=== PATIENT | male | born 1940 | race Caucasian/White ===

== ENCOUNTER → 2018-06-26 12:17 | Outpatient (CLI) | payer MEDICARE, SELFPAY ==
[2018-06-18 10:09] VITALS: BMI 36.2
--- NOTE | 2018-06-26 12:20 | STEWCON_ITS ---
Reason For Study: HTN, Diastolic Dysfunction Stress Results Protocol: Dobutamine Stress Echo Maximum Predicted HR: 143 bpm Target HR: 122 bpm % Maximum Predicted HR: 67 % Heart Stage Duration Rate BP Comment (mm:ss) (bpm) Baseline 64 133/73No Chest Pain; 2.5 ML Diluted Definity Given DSE 10 MCG 3:00 51 135/81No Chest Pain DSE 20 MCG 3:00 56 205/97No Chest Pain No Chest Pain; Atropine not given d/t stroke symptoms; At the end of DSE 30 the third stage, patient noted to have slurred speech and right MCG 4:58 96 194/86facial droop. Unable to lift left arm. Test aborted. Stroke team activated . Stress Duration: 10:58 mm:ss Maximum Stress HR: 96 bpm Baseline Echocardiogram Findings The estimated ejection fraction is 65 %. Stress Echo Wall motion Data Resting WM Intermediate WM Stress WM Resting Wall Motion Wall Motion Stress No regional wall motion No regional wall motion abnormalities noted. abnormalities noted. EKG Data The baseline ECG displays normal sinus rhythm. The patient was titrated from 10 mcg to a maximum of 20 mcg of dobutamine during the stress. This was 69% of maximum predicted heart rate. During dobutamine infusion, there were no ST or T wave changes noted to suggest ischemia. No clinical angina was noted. Interpretation Summary The study was technically difficult. Contrast injection was performed. The estimated ejection fraction is 65 %. The patient was titrated from 10 mcg to a maximum of 20 mcg of dobutamine during the stress. Normal, submaximal dobutamine echocardiogram. Negative for ischemia by EKG and echocardiographic criteria. No anginal symptoms noted. Rare PVCs and ventricular couplets noted. Hypertensive blood pressure response to dobutamine. Test aborted as the patient developed slurred speech and right- sided facial droop and right arm paralysis during the third stage of the dobutamine stress echo. Stroke team was called and the patient was brought emergently to the emergency room for further evaluation. Patient's family notified by telephone. Decreased sensitivity due to poor echo windows requiring Definity agent as well as inability to obtain target heart rate. Final LVEF during the test was 75%. Ordering Physician: Osmani Grijalva Referring Physician: Osmani Grijalva Performed By: Kathie High, ELVIN, RVT
--- NOTE | 2018-06-26 13:14 | CT_ITS ---
STUDY: CTA OF THE BRAIN REASON FOR EXAM: Male, 78 years old. Acute hematoma in the left basal ganglia. RADIATION DOSAGE (If Supplied By Facility): CTDIvol = ( 18.76 ) mGy, DLP = ( 657.51 ) mGycm TECHNIQUE: CT angiography was performed with a multi-detector CT scanner. Data acquisition was obtained from the skull base through the vertex following intravenous administration of 100 ml of Isovue-300. MIP images were reconstructed from the axial data set. Post-processing of the angiographic images was performed, with multiplanar reformation and 3D reconstruction. Individualized dose optimization techniques were used for this CT. COMPARISON: None. FINDINGS: Normal bilateral petrous carotid arteries. There is calcified plaque formation of the right cavernous carotid artery, without a cross-sectional luminal stenosis. There is calcified plaque formation of the left cavernous carotid artery, without a cross-sectional luminal stenosis. Normal right A1 segments of the anterior cerebral artery. Normal left A1 segments of the anterior cerebral artery. Normal intact anterior communicating artery (ACOM). Normal bilateral A2 segments of the anterior cerebral arteries. Normal right M1 and M2 segments of the middle cerebral arteries, with a normal M1 bifurcation. Normal left M1 and M2 segments of the middle cerebral arteries, with a normal M1 bifurcation. Normal right posterior communicating artery (PCOM). Normal left posterior communicating artery (PCOM). Normal bilateral vertebral arteries. Normal basilar artery with a normal basilar bifurcation. The visualized bilateral superior cerebellar (SCA) arteries are normal. Normal bilateral P1, P2 and visualized P3 segments of the posterior cerebral arteries. There is no demonstrated aneurysm of the [place] of [place]. Once again, there is evidence acute hematoma in the insular cortex on the left frontal temporal parietal lobe abutting the left thalamus. IMPRESSION: Normal [place] of [place] without a demonstrated aneurysm or hemodynamically significant stenosis. N.B. : The above information has been verbally conveyed by Christofer Gill MD to Dr Baker on 06/26/2018 13:57:00 (ET). Electronically Signed: Christofer Gill MD at 13:55 EST Tel [phone], Service support , STUDY: CTA NECK WITH CONTRAST REASON FOR EXAM: Male, 78 years old. Left intracranial hematoma. RADIATION DOSAGE (If Supplied By Facility): CTDIvol = ( 18.76 ) mGy, DLP = ( 657.51 ) mGycm TECHNIQUE: CT angiography with multi-detector data acquisition was performed from the aortic arch to the skull base following intravenous administration of 100 ml of Isovue 300 contrast. MIP images were reconstructed from the axial data set. Post-processing of the angiographic images was performed, with multiplanar reformation and 3D reconstruction. Individualized dose optimization techniques were used for this CT. COMPARISON: None. FINDINGS: AORTIC ARCH: There is atherosclerotic calcific plaque formation of the aortic arch and great vessels arising from the aortic arch, without a hemodynamically significant stenosis. There is a normal origin of the brachiocephalic, left common carotid, and left subclavian arteries. RIGHT CAROTID ARTERIES: Normal right common carotid artery (CCA). Normal right common carotid bulb. There is mild atherosclerotic plaque formation of the origin of the right internal carotid artery with less than 50% cross sectional diameter stenosis. Normal visualized cervical portion of the right internal carotid artery. Normal origin of the right external carotid artery (ECA). LEFT CAROTID ARTERIES: Normal left common carotid artery (CCA). Normal left common carotid bulb. There is mild atherosclerotic plaque formation of the origin of the left internal carotid artery with less than 50% cross sectional diameter stenosis. Normal visualized cervical portion of the left internal carotid artery. Normal origin of the left external carotid artery (ECA). VERTEBRAL ARTERIES: Normal bilateral vertebral arteries. CT/CTA Neck W/WO Contrast IMPRESSION: Mild degree of atherosclerotic calcification of the carotid bifurcations bilaterally. N.B. : The above information has been verbally conveyed by Christofer Gill MD to Dr Baker on 06/26/2018 13:57:00 (ET). Electronically Signed: Christofer Gill MD at 13:58 EST Tel [phone], Service support ,
--- NOTE | 2018-06-26 13:14 | CT_ITS ---
STUDY: CTA OF THE BRAIN REASON FOR EXAM: Male, 78 years old. Acute hematoma in the left basal ganglia. RADIATION DOSAGE (If Supplied By Facility): CTDIvol = ( 18.76 ) mGy, DLP = ( 657.51 ) mGycm TECHNIQUE: CT angiography was performed with a multi-detector CT scanner. Data acquisition was obtained from the skull base through the vertex following intravenous administration of 100 ml of Isovue-300. MIP images were reconstructed from the axial data set. Post-processing of the angiographic images was performed, with multiplanar reformation and 3D reconstruction. Individualized dose optimization techniques were used for this CT. COMPARISON: None. FINDINGS: Normal bilateral petrous carotid arteries. There is calcified plaque formation of the right cavernous carotid artery, without a cross-sectional luminal stenosis. There is calcified plaque formation of the left cavernous carotid artery, without a cross-sectional luminal stenosis. Normal right A1 segments of the anterior cerebral artery. Normal left A1 segments of the anterior cerebral artery. Normal intact anterior communicating artery (ACOM). Normal bilateral A2 segments of the anterior cerebral arteries. Normal right M1 and M2 segments of the middle cerebral arteries, with a normal M1 bifurcation. Normal left M1 and M2 segments of the middle cerebral arteries, with a normal M1 bifurcation. Normal right posterior communicating artery (PCOM). Normal left posterior communicating artery (PCOM). Normal bilateral vertebral arteries. Normal basilar artery with a normal basilar bifurcation. The visualized bilateral superior cerebellar (SCA) arteries are normal. Normal bilateral P1, P2 and visualized P3 segments of the posterior cerebral arteries. There is no demonstrated aneurysm of the [place] of [place]. Once again, there is evidence acute hematoma in the insular cortex on the left frontal temporal parietal lobe abutting the left thalamus. IMPRESSION: Normal [place] of [place] without a demonstrated aneurysm or hemodynamically significant stenosis. N.B. : The above information has been verbally conveyed by Christofer Gill MD to Dr Baker on 06/26/2018 13:57:00 (ET). Electronically Signed: Christofer Gill MD at 13:55 EST Tel [phone], Service support , STUDY: CTA NECK WITH CONTRAST REASON FOR EXAM: Male, 78 years old. Left intracranial hematoma. RADIATION DOSAGE (If Supplied By Facility): CTDIvol = ( 18.76 ) mGy, DLP = ( 657.51 ) mGycm TECHNIQUE: CT angiography with multi-detector data acquisition was performed from the aortic arch to the skull base following intravenous administration of 100 ml of Isovue 300 contrast. MIP images were reconstructed from the axial data set. Post-processing of the angiographic images was performed, with multiplanar reformation and 3D reconstruction. Individualized dose optimization techniques were used for this CT. COMPARISON: None. FINDINGS: AORTIC ARCH: There is atherosclerotic calcific plaque formation of the aortic arch and great vessels arising from the aortic arch, without a hemodynamically significant stenosis. There is a normal origin of the brachiocephalic, left common carotid, and left subclavian arteries. RIGHT CAROTID ARTERIES: Normal right common carotid artery (CCA). Normal right common carotid bulb. There is mild atherosclerotic plaque formation of the origin of the right internal carotid artery with less than 50% cross sectional diameter stenosis. Normal visualized cervical portion of the right internal carotid artery. Normal origin of the right external carotid artery (ECA). LEFT CAROTID ARTERIES: Normal left common carotid artery (CCA). Normal left common carotid bulb. There is mild atherosclerotic plaque formation of the origin of the left internal carotid artery with less than 50% cross sectional diameter stenosis. Normal visualized cervical portion of the left internal carotid artery. Normal origin of the left external carotid artery (ECA). VERTEBRAL ARTERIES: Normal bilateral vertebral arteries. CT/CTA Head W/WO Contrast IMPRESSION: Mild degree of atherosclerotic calcification of the carotid bifurcations bilaterally. N.B. : The above information has been verbally conveyed by Christofer Gill MD to Dr Baker on 06/26/2018 13:57:00 (ET). Electronically Signed: Christofer Gill MD at 13:58 EST Tel [phone], Service support ,
--- NOTE | 2018-06-26 13:14 | CT_ITS ---
STUDY: CT BRAIN WITHOUT CONTRAST REASON FOR EXAM: Male, 78 years old. History of CVA. RADIATION DOSAGE (If Supplied By Facility): CTDIvol = ( 60.81 ) mGy, DLP = ( 1059.71 ) mGycm TECHNIQUE: Transaxial CT imaging of the brain was performed without administration of intravenous contrast material. Individualized dose optimization techniques were used for this CT. COMPARISON: Comparison is made with prior study dated January 20, 2015. FINDINGS: Normal soft tissue structures. Normal calvarium. There is mild cerebral atrophy with widening of the extra-axial spaces and ventricular dilatation. There are areas of decreased attenuation within the white matter tracts of the supratentorial brain, consistent with microvascular disease changes. There now is evidence of a 4.1 cm x 2.4 cm acute hematoma in the deep left frontal temporal parietal lobe in the region of the insular cortex of the left temporal lobe. This abuts the left thalamus. Surrounding mass effect and edema. Normal brainstem. Normal cerebellum. Normal visualized paranasal sinuses. CT/Brain/Head without Contrast IMPRESSION: Acute intracranial hematoma in the insular cortex of the left temporoparietal frontal lobes with surrounding mass effect and edema. N.B. : The above information has been verbally conveyed by Christofer Gill MD to Dr Olivia MD, on 06/26/2018 13:36:13 (ET). Electronically Signed: Christofer Gill MD at 13:37 EST Tel [phone], Service support ,
== END ==
PROVIDERS: Family Provider Family Medicine; PCP Family Medicine; Referring Provider Internal Medicine Cardiovascular Disease; Visit Provider Internal Medicine Cardiovascular Disease
DX: I12.9 Hypertensive chronic kidney disease with stage 1 through stage 4 chronic kidney disease, or unspecified chronic kidney disease (principal); N18.9 Chronic kidney disease, unspecified; I51.89 Other ill-defined heart diseases; E78.5 Hyperlipidemia, unspecified; E11.22 Type 2 diabetes mellitus with diabetic chronic kidney disease; G47.33 Obstructive sleep apnea (adult) (pediatric)
CPT/HCPCS: 70450; 70496; 70498; 93017; 93350; J7040; Q9957; Q9967; A4216; C8928

== ENCOUNTER 2018-06-26 13:23 | Emergency (ER) | payer MEDICARE, SELFPAY ==
[2018-06-18 10:09] VITALS: BMI 36.2
[2018-06-26] VITALS (7 sets, daily range): BP systolic 127–176; BP diastolic 65–88; PULSE 72–90; RESP 16–20; TEMP 36.2; O2SAT 90–97; BMI 38.3
[2018-06-26] MEDS: 0.9% Normal Saline 1,000 ML 100 ML IV (13:25)
--- NOTE | 2018-06-26 13:28 | EKG12_ITS ---
Test Reason : STROKETEAM Blood Pressure : / mmHG Vent. Rate : 074 BPM Atrial Rate : 074 BPM P-R Int : 144 ms QRS Dur : 140 ms QT Int : 434 ms P-R-T Axes : 079 075 026 degrees QTc Int : 481 ms Normal sinus rhythm Right bundle branch block Abnormal ECG Confirmed by WILL CORTEZ, ALDO ([id number]), publication editor MIRNA DE SOUZA ([id number]) on 06/29/2018 2:25:22 PM Referred By: Osmani Grijalva Confirmed By:ALDO SOLIS MD
--- NOTE | 2018-06-26 13:28 | RAD_ITS ---
STUDY: X-RAY CHEST REASON FOR EXAM: Male, 78 years old. Intracranial hemorrhage. TECHNIQUE: Single AP portable view of the chest. COMPARISON: None. FINDINGS: EKG electrodes are seen. Limited inspiratory effort. Mild degree of impaired aeration at the lung bases. There is no demonstrated pleural abnormality. There is mild cardiac enlargement. Normal mediastinum and familia. Normal visualized pulmonary arteries. There is atherosclerotic calcification of the aortic arch with tortuosity. There are diffuse degenerative changes of the visualized thoracic spine. There is degenerative osteoarthritis of the bilateral shoulders. There is no demonstrated abnormality of the visualized soft tissue structures of the upper abdomen. RAD/Chest 1 View IMPRESSION: Mild degree of bibasilar atelectasis is most likely secondary to limited inspiratory effort. Electronically Signed: Christofer Gill MD at 14:05 EST Tel [phone], Service support ,
[2018-06-26 13:35] LABS: Bedside Glucose 125 mg/dL (70-110)
[2018-06-26 13:43] LABS: Absolute Lymphocyte Count 3.57 X10^3/ul (0.83-4.51); Absolute Neutrophil Count 7.5 X10^3/uL (2.0-7.7); Basophil# 0.04 X10^3/uL; Basophil% 0.3 % (0-1); Eosinophil# 0.23 X10^3/uL; Eosinophils% 1.9 % (0-5); Hemoglobin 15.4 g/dl (13.0-16.5); Lymphocyte # 3.57 X10^3/ul (4.0); Lymphocyte % 29.5 % (19-41); Mean Corp Hgb Conc 33.5 g/gl (32-36); Mean Corpuscular Volume 89.5 fL (80-94); Mean Platelet Vol. 10.6 fl (6.2-12.0); Monocyte# 0.78 X10^3/uL; Monocyte% 6.4 % (0-10); Neutrophil # 7.45 X10^3/uL (2.7-7.7); Neutrophil % 61.5 % (47-70); Platelet Count 215 K/mm3 (150-450); RBC Distribution Width CV 13.7 % (11.6-14.6); RBC Distribution Width SD 44.2 fl (35.1-43.9); Red Blood Count 5.14 M/mm3 (4.6-6.2); White Blood Count 12.1 K/mm3 (4.4-11.0)
[2018-06-26 13:44] LABS: POSITIVE COUNT NO; POSITIVE DIFFERENTIAL NO; POSITIVE MORPHOLOGY NO
[2018-06-26] MEDS: levETIRAcetam IV 1,000 MG/100 ML BAG 400 MG IV (13:57)
[2018-06-26] MEDS: Ondansetron 4 MG/2 ML Vial IV (13:57)
--- NOTE | 2018-06-26 14:01 | CHAPLAIN ---
Type of Pastoral Visit ___ Initial Visit ___ Follow-up Visit ___ On-call Visit ___ General Patient Visit ___ Spiritual Assessment ___ Family Conference ___ Bereavement _x__ Rapid Response ___ Code Blue ___ Other (describe below) Pastoral Care Referral From ___ Patient ___ Family ___ Nurse ___ Physician ___ Rehab Nurse ___ Optical Mechanic Apprentice _x__ Other (describe below) Sacrament/Intervention ___ Active listening ___ Anointing ___ Methodist ___ Bereavement ___ Communion ___ [place] exploration ___ ___ Life review ___ Prayer ___ Reconciliation ___ Sacrament of Sick _x__ Supportive presence ___ Wedding ___ Other (describe below) Pastoral Comments waited 20 minutes on family members to show up but they did not immediately come; went to Echocardiogram area to check on staff members who witnessed the stroke; offered support to staff
[2018-06-26 14:04] LABS: Anion Gap 9 (5-15); BUN 24 mg/dL (7-18); BUN/Creat Ratio 20.2 RATIO (10-20); Calcium,Total 8.5 mg/dL (8.5-10.1); Chloride 106 mmol/L (98-107); Creatinine, Serum 1.19 mg/dL (0.70-1.30); EST Glomerular Filtration Rate 63 mL/min (>60); Est Glom Filt Rate - Afr Amer 76 mL/min (>60); Estimated Creatinine Clearance 51.99 ml/min; Glucose 116 mg/dL (74-106); Potassium 3.8 mmol/L (3.5-5.1); Sodium Level 140 mmol/L (136-145)
[2018-06-26 14:08] LABS: Partial Thromboplast Time 30.3 Seconds (24.1-36.2); Prothrombin Time (Protime)PT. 13.3 SECONDS (11.7-14.9)
--- NOTE | 2018-06-26 14:14 | ED.DCSUM_ITS ---
- ER Visit Summary Date of Service: 06/26/18 Chief Complaint: [Mental status change and facial droop] History of Present Illness: The patient is a 78 M [presents to the emergency department from CT scanner. Patient was at the hospital for an outpatient stress echo. 6 minutes into the testing patient developed slurred speech and a facial droop. Stroke team was called and patient was taken directly to the CT scanner and was accompanied back to the emergency department by hospitalist and neurologist that was in house. Patient complains of a headache. Patient did have some dry heaves prior to arrival in the emergency department. Patient is difficult to understand as he has garbled speech but does not his head yes and no and does state that he has a headache. Patient is known to have a history of diabetes, hypertension, high cholesterol, and chronic kidney disease.] Physical Examination: [HEENT-PERRLA, EOMI. Cranial nerves II through XII grossly intact. TMs clear. Mucous membranes moist. No adenopathy. Patient has a right-sided facial droop Cardiovascular-regular rate and rhythm without murmur or ectopy Lungs-clear to auscultation, chest wall stable without crepitus or subcu emphysema Abdomen-normoactive bowel sounds, soft, nontender, no rebound or rigidity, no peritoneal signs. Neuro exam-NIH stroke scale is 22. Patient has flaccid right upper and lower extremities and has extinction of his right side. Extremities-intact ?4, normal range of motion, normal pulses, atraumatic] Test Results: [T scan of the brain without contrast showed a intracranial hemorrhage left temporoparietal insular cortex measuring 4.1 x 2.4 cm. CBC with differential showed a white count of 12.1, hemoglobin 15, hematocrit 46, placed 215. Chemistries unremarkable. Troponin is less than 0.015. EKG obtained showed a sinus rhythm with ventricular rate of 74 bpm with a right bundle branch block.] Emergency Department Course and Treatment: [Patient was medicated with labetalol 20 mg IV as well as Zofran 4 mg IV and Keppra 1 g IV.] Treatment Plan: [Patient case was discussed with [facility] who accepted transfer of patient to their facility. At this point patient is maintaining his airway and is a alert therefore will hold off on intubation.] Disposition: [Transfer to [facility]] Impression: [Left-sided intracranial hemorrhage] This note was generated with [employer]OTE[employer] dictation software. It may contain incorrect words, spelling, and punctuation that were not noted in review of the chart prior to signing ED Disposition - Plan for ED Patient: Chief Complaint: Neuro S/Sx Referrals: Edilson Jaramillo MD [Primary Care Provider] -
--- NOTE | 2018-06-26 14:17 | CON.PCM_ITS ---
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 Patient was getting outpatient dobutamine stress test, when around 1:05 PM patient started having speech disturbances with right facial droop and right sided weakness. NIHSS on my assessment was 24 at that time and per nurse patient had driven himself to the test. Per nurse at the echo lab his SBP was about 210 and was around [address] scan[address] head done stat showed left temporo-parietal hematoma with mild mass effect. CTA head/neck on my review did not show any aneurysm. At present patient continues to be somnolent, with right gaze preference, right facial droop, right sided hemiplegia, and neglect. 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, leg crushed by rock Hyperlipidemia (Chronic) Osteoarthritis (Chronic) Restless leg syndrome (Chronic) Benign prostatic hyperplasia (Chronic) Hypertension (Chronic) Obstructive sleep apnea (Chronic) Type 2 diabetes mellitus (Chronic) Medical History: Medical History (Last Updated 06/25/18 @ 13:27 by Elina Dallas) Chronic renal insufficiency (Chronic) N18.9 Hyperlipidemia (Chronic) E78.5 Benign prostatic hyperplasia (Chronic) N40.0 Hypertension (Chronic) I10 Obstructive sleep apnea (Chronic) G47.33 Type 2 diabetes mellitus (Chronic) E11.9 Allergies liraglutide [From Victoza] Adverse Reaction (Severe, Verified 06/26/18 13:29) Diarrhea Home Medications: Ambulatory Orders Medication Instructions Recorded Dorzolamide HCL/Timolol [Cosopt 1 drp EACH EYE BID 09/11/14 Opth Drops] Escitalopram Oxalate [Lexapro] 10 mg PO DAILY 09/11/14 Furosemide [Lasix] 40 mg PO DAILY 09/11/14 Latanoprost 0.005% [Xalatan 1 drp EACH EYE QHS 09/11/14 Opthalmic] Rosuvastatin Calcium [Crestor] 10 mg PO DAILY 09/11/14 Insulin Detemir [Levemir FlexPen] 66 units SC QHS 06/19/16 gabapentin 400 mg capsule 400 mg PO DAILY 11/11/17 metformin 1,000 mg tablet 1,000 mg PO QDAY tab 11/13/17 carvedilol 3.125 mg tablet 3.125 mg PO BID #180 tab 03/06/18 Surgical History: Surgical History (Last Reviewed 06/18/18 @ 09:27 by Jeimy Parker) History of total right knee replacement (Chronic) Z96.651 History of left lower extremity amputation (Chronic) Z89.612 age 8 after trauma, leg crushed by rock Surgical History: total knee arthroplasty, - - Past history of otsuw-pjt-ibao amputation on the left secondary to trauma when the patient was 14 years old Psychiatric History: No pertinent psych hx Smoking Status: Former smoker - *Family History Maternal Family History: Family History (Last Reviewed 06/18/18 @ 09:27 by Jeimy Parker) Father Negative for ASCVD Mother Negative for ASCVD History Items: Cancer Paternal Family History: Family History (Last Reviewed 06/18/18 @ 09:27 by Jeimy Parker) Father Negative for ASCVD Mother Negative for ASCVD History Items: Cancer Sibling Family History: Family History (Last Reviewed 06/18/18 @ 09:27 by Jeimy Parker) Father Negative for ASCVD Mother Negative for ASCVD History Items: Heart Disease Review of Systems Constitutional: Reports: - - ROS could not be obtained as patient is altered Patient Problems: Active and Suspected Problems (Last Updated 06/25/18 @ 13:27 by Elina Dallas) ICH (intracerebral hemorrhage) (Acute) - Physical Exam General: - - drowsy, arousable HEENT: Normocephalic Neck: Supple Lungs: Normal air movement Cardiovascular: Normal S1, Normal S2 Abdomen: Bowel Sounds Present Extremities: No cyanosis Neurological: - - drowsy, arousable,does not follow VC, CN- pupils BERL, Right 7th UMN facial palsy, right homonymous hemianopia, power Right UE/LE 0/5, moves left UE, left LE AKA (old), right sided neglect, severe sensory loss, right extinction, severe aphasia, NIHSS 24 at present Psych/Mental Status: Normal Affect Vital Signs Temp Pulse Resp BP Pulse Ox 97.2 F L 86 18 137/67 H 96 06/26/18 13:30 06/26/18 13:47 06/26/18 13:47 06/26/18 13:47 06/26/18 13:47 Oxygen Flow Rate (L/min) 3 Oxygen Delivery Method Room Air Weight: 117.8 kg Body Mass Index (BMI) 38.3 Finger Stick Blood Glucose 125 Laboratory Tests Past 24 Hrs 06/26/18 06/26/18 06/26/18 13:30 13:30 13:30 WBC 12.1 H RBC 5.14 Hgb 15.4 Hct 46.0 MCV 89.5 MCH 30.0 MCHC 33.5 RDW 13.7 RDW Differential 44.2 H Plt Count 215 MPV 10.6 Immature Gran % (Auto) 0.400 Neut % (Auto) 61.5 Lymph % (Auto) 29.5 [place] % (Auto) 6.4 Eos % (Auto) 1.9 Baso % (Auto) 0.3 Absolute Neuts (auto) 7.5 Absolute Lymphs (auto) 3.57 Total Counted Not Reportable PT Cancelled INR Cancelled APTT Cancelled Sodium 140 Potassium 3.8 Chloride 106 Carbon Dioxide 25.0 Anion Gap 9 BUN 24 H Creatinine 1.19 Estim Creat Clear Calc 51.99 Est GFR (MDRD) Af Amer 76 Est GFR (MDRD) Non-Af 63 BUN/Creatinine Ratio 20.2 H Glucose 116 H Calcium 8.5 Troponin I < 0.015 06/26/18 13:55 WBC RBC Hgb Hct MCV MCH MCHC RDW RDW Differential Plt Count MPV Immature Gran % (Auto) Neut % (Auto) Lymph % (Auto) [place] % (Auto) Eos % (Auto) Baso % (Auto) Absolute Neuts (auto) Absolute Lymphs (auto) Total Counted PT Pending INR Pending APTT Pending Sodium Potassium Chloride Carbon Dioxide Anion Gap BUN Creatinine Estim Creat Clear Calc Est GFR (MDRD) Af Amer Est GFR (MDRD) Non-Af BUN/Creatinine Ratio Glucose Calcium Troponin I POC Glucose 06/26/18 13:28 POC Glucose 125 H Assessment/Plan All Active Problems (Last Updated 06/25/18 @ 13:27 by Elina Dallas) ICH (intracerebral hemorrhage) (Acute) Medical management (Acute) The patient is a 78 year old CM with PMH HTN, HLD, DM, CKD, diastolic dysfunction, RLS, BPH, 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 Patient was getting outpatient dobutamine stress test, when around 1:05 PM patient started having speech disturbances with right facial droop and right sided weakness. NIHSS on my assessment was 24 at that time and per nurse patient had driven himself to the test. Per nurse at the echo lab his SBP was about 210 and was around [address] scan[address] head done stat showed left temporo-parietal hematoma with mild mass effect. CTA head/neck on my review did not show any aneurysm. At present patient continues to be somnolent, with right gaze preference, right facial droop, right sided hemiplegia, and neglect. Per documentation he is not on any AC at baseline Impression Left temporo-parietal hematoma Plan -At present patient is maintaining his airway and is not intubated. -Frequent Neuro checks -Neurosurgery consults JOSEP -Patient to be transferred to tertiary center for further NICU care -At present no family available for further details -BP goal 150-160 mmHg -GI/DVT prophylaxis -Further medical management per primary team and ED. -Fall precautions -prognosis guarded -Please call with questions if any -Thank you for allowing us to participate in patient's care and management Code Visit Inpatient E&M: [id number] Init Hosp L3
== END 2018-06-26 15:27 | disposition short-term general hospital (02) ==
LOC: ED 13:49
PROVIDERS: Emergency Provider Emergency Medicine; Family Provider Family Medicine; PCP Family Medicine
DX: I62.9 Nontraumatic intracranial hemorrhage, unspecified (principal); R29.810 Facial weakness; N18.9 Chronic kidney disease, unspecified; I12.9 Hypertensive chronic kidney disease with stage 1 through stage 4 chronic kidney disease, or unspecified chronic kidney disease; E11.22 Type 2 diabetes mellitus with diabetic chronic kidney disease; E78.5 Hyperlipidemia, unspecified; N40.0 Benign prostatic hyperplasia without lower urinary tract symptoms; R47.89 Other speech disturbances; R29.724 NIHSS score 24; M19.90 Unspecified osteoarthritis, unspecified site; G25.81 Restless legs syndrome; G47.33 Obstructive sleep apnea (adult) (pediatric); I45.10 Unspecified right bundle-branch block; I70.0 Atherosclerosis of aorta; I65.23 Occlusion and stenosis of bilateral carotid arteries; H53.461 Homonymous bilateral field defects, right side; R47.01 Aphasia; R94.39 Abnormal result of other cardiovascular function study; R51 Headache; R41.82 Altered mental status, unspecified; Z79.899 Other long term (current) drug therapy; Z79.4 Long term (current) use of insulin; Z89.612 Acquired absence of left leg above knee; Z87.891 Personal history of nicotine dependence; Z86.79 Personal history of other diseases of the circulatory system; I51.89 Other ill-defined heart diseases
CPT/HCPCS: 70450; 70496; 70498; 71045; 80048; 82962; 84484; 85025; 85610; 85730; 93005; 93017; 93350; 96361; 96365; 96375; 99285; J7040; Q9957; Q9967; A4216; C8928; J2405

== ENCOUNTER → 2018-10-03 05:00 | Outpatient (REF) | payer MEDICARE, SELFPAY ==
[2018-06-26 13:24] VITALS: BMI 38.3
[2018-10-03 09:20] LABS: Anion Gap 6 (5-15); BUN 19 mg/dL (7-18); BUN/Creat Ratio 22.2 RATIO (10-20); Calcium,Total 8.7 mg/dL (8.5-10.1); Chloride 107 mmol/L (98-107); Creatinine, Serum 0.86 mg/dL (0.70-1.30); EST Glomerular Filtration Rate 92 mL/min (>60); Est Glom Filt Rate - Afr Amer 111 mL/min (>60); Glucose 275 mg/dL (74-106); Potassium 4.2 mmol/L (3.5-5.1); Sodium Level 139 mmol/L (136-145)
== END ==
PROVIDERS: Visit Provider Family Medicine
DX: Z93.1 Gastrostomy status (principal)
CPT/HCPCS: 36415; 80048

== ENCOUNTER 2018-11-13 12:02 | Emergency (ER) | payer MEDICARE, SELFPAY ==
[2018-06-26 13:24] VITALS: BMI 38.3
[2018-11-13 12:06] VITALS: BP 135/80; PULSE 67; RESP 19; TEMP 36.6; O2SAT 99; BMI 32.8
--- NOTE | 2018-11-13 12:29 | CT_ITS ---
STUDY: CT BRAIN WITHOUT CONTRAST REASON FOR EXAM: Male, 78 years old. Headache, history of previous bleed RADIATION DOSAGE (If Supplied By Facility): CTDIvol = ( 44.99 ) mGy, DLP = ( 863.60 ) mGycm TECHNIQUE: Transaxial CT imaging of the brain was performed without administration of intravenous contrast material. Individualized dose optimization techniques were used for this CT. COMPARISON: 06/26/2018 FINDINGS: Postsurgical changes noted in the left frontal/temporal lobe. No post surgical complications noted. Postsurgical changes noted in the left cerebral hemisphere with encephalomalacia at the site of previous surgery in the left insular cortex and subsequent ipsilateral dilatation of the left lateral ventricle. No acute hemorrhage midline shift or mass effect. CT/Brain/Head without Contrast IMPRESSION: Postsurgical changes noted in the left cerebral hemisphere. Atrophic, periventricular and deep white matter changes without acute intracranial hemorrhage, midline shift or mass effect. Electronically Signed: Mitesh Marshall MD at 13:07 EDT , Service support ,
--- NOTE | 2018-11-13 12:29 | CT_ITS ---
STUDY: CT CERVICAL SPINE WITHOUT CONTRAST REASON FOR EXAM: Male, 78 years old. Neck pain and headache after a fall RADIATION DOSAGE (If Supplied By Facility): CTDIvol = ( 26.76 ) mGy, DLP = ( 653.40 ) mGycm TECHNIQUE: High resolution transaxial imaging was performed without contrast material. Sagittal and coronal images were reconstructed. Individualized dose optimization techniques were used for this CT. COMPARISON: None FINDINGS: Normal craniovertebral junction. Normal anterior atlantoaxial articulation. Normal odontoid process. There is straightening of the normal cervical lordosis. There are sclerotic endplate changes noted throughout the cervical spine. There is anatomic alignment of the cervical spine. No demonstrated fracture. Intervertebral disc space narrowing noted throughout the cervical spine. No central canal stenosis, there is bilateral foraminal narrowing noted throughout the C-spine. Normal visualized soft tissue structures. No upper rib fracture or pneumothorax CT/Spine Cervical without Contras IMPRESSION: Multilevel degenerative changes, as described above. Electronically Signed: Mitesh Marshall MD at 13:10 EDT , Service support ,
--- NOTE | 2018-11-13 13:30 | ED.VISSUMM ---
- ER Visit Summary Date of Service: 11/13/18 Chief Complaint: [Fall] History of Present Illness: The patient is a 78 M [presents to the emergency department with complaint of a fall that occurred earlier today. Patient was in a lift chair and does believe he may have rolled out. Patient has had left hvene-lgi-xfqh amputation and has had prior stroke and has weakness on the right side of his body related to the stroke. Patient is on Eliquis currently and is being treated for a right leg DVT. He denies loss of consciousness. He denies chest pain or abdominal pain. Daughter wanted to have the patient evaluated. Patient also with history of diabetes.] Physical Examination: [HEENT-PERRLA, EOMI. Cranial nerves II through XII grossly intact. TMs clear. Mucous membranes moist. No adenopathy. Patient has superficial abrasions to the right forehead and cheek no bony depressions noted. Patient has mild diffuse C-spine tenderness on palpation. No bony step-offs. Cardiovascular-regular rate and rhythm without murmur or ectopy Lungs-clear to auscultation, chest wall stable without crepitus or subcu emphysema Abdomen-normoactive bowel sounds, soft, nontender, no rebound or rigidity, no peritoneal signs. Extremities-intact ?4, normal range of motion, normal pulses, atraumatic ] Test Results: [CT scan of the brain without contrast obtained and was unremarkable for bleed or skull fracture. Chronic changes noted. CT scan of the cervical spine obtained showed degenerative changes but no fractures.] Emergency Department Course and Treatment: [Patient had wounds cleansed and dressings applied.] Treatment Plan: [Follow with primary care physician in 3 to 5 days] Disposition: [Discharged to home in stable condition] Impression: [Mechanical fall Closed head injury] This note was generated with [employer] dictation software. It may contain incorrect words, spelling, and punctuation that were not noted in review of the chart prior to signing ED Disposition - Plan for ED Patient: Referrals: Pearl Stanton MD [Primary Care Provider] -
--- NOTE | 2018-11-13 13:34 | ED.DCSUM_ITS ---
- ER Visit Summary Date of Service: 11/13/18 Chief Complaint: [Fall] History of Present Illness: The patient is a 78 M [presents to the emergency department with complaint of a fall that occurred earlier today. Patient was in a lift chair and does believe he may have rolled out. Patient has had left wwfrb-hob-qbbl amputation and has had prior stroke and has weakness on the right side of his body related to the stroke. Patient is on Eliquis currently and is being treated for a right leg DVT. He denies loss of consciousness. He denies chest pain or abdominal pain. Daughter wanted to have the patient evaluated. Patient also with history of diabetes.] Physical Examination: [HEENT-PERRLA, EOMI. Cranial nerves II through XII grossly intact. TMs clear. Mucous membranes moist. No adenopathy. Patient has superficial abrasions to the right forehead and cheek no bony depressions noted. Patient has mild diffuse C-spine tenderness on palpation. No bony step- offs. Cardiovascular-regular rate and rhythm without murmur or ectopy Lungs-clear to auscultation, chest wall stable without crepitus or subcu emphysema Abdomen-normoactive bowel sounds, soft, nontender, no rebound or rigidity, no peritoneal signs. Extremities-intact ?4, normal range of motion, normal pulses, atraumatic ] Test Results: [CT scan of the brain without contrast obtained and was unremarkable for bleed or skull fracture. Chronic changes noted. CT scan of the cervical spine obtained showed degenerative changes but no fractures.] Emergency Department Course and Treatment: [Patient had wounds cleansed and dressings applied.] Treatment Plan: [Follow with primary care physician in 3 to 5 days] Disposition: [Discharged to home in stable condition] Impression: [Mechanical fall Closed head injury] This note was generated with [employer] dictation software. It may contain incorrect words, spelling, and punctuation that were not noted in review of the chart selvin or to signing ED Disposition - Plan for ED Patient: Referrals: Pearl Stanton MD [Primary Care Provider] -
--- NOTE | 2018-11-13 13:34 | ED.DEP ---
ED Disposition - Plan for ED Patient: Instructions: ED Mechanical Fall, ED Head Injury Closed Referrals: Pearl Stanton MD [Primary Care Provider] - 3-5 Days
[2018-11-13 14:10] VITALS: BP 151/78; PULSE 62; RESP 16; O2SAT 97
[2018-11-13 14:33] VITALS: BP 151/78; PULSE 65; RESP 16; O2SAT 97
== END 2018-11-13 14:34 | disposition home or self-care (01) ==
PROVIDERS: Emergency Provider Emergency Medicine; Family Provider Family Medicine; PCP Family Medicine
DX: S00.81XA Abrasion of other part of head, initial encounter (principal); W17.89XA Other fall from one level to another, initial encounter; Y93.9 Activity, unspecified; Y92.099 Unspecified place in other non-institutional residence as the place of occurrence of the external cause; I69.359 Hemiplegia and hemiparesis following cerebral infarction affecting unspecified side; E11.9 Type 2 diabetes mellitus without complications; Z89.612 Acquired absence of left leg above knee; Z79.01 Long term (current) use of anticoagulants; Z79.4 Long term (current) use of insulin; Z79.84 Long term (current) use of oral hypoglycemic drugs; Z79.899 Other long term (current) drug therapy
CPT/HCPCS: 70450; 72125; 99284

== ENCOUNTER → 2019-05-15 05:00 | Outpatient (REF) | payer MEDICARE, SELFPAY ==
[2018-12-25 11:03] VITALS: BMI 30.9
[2019-05-15 08:08] LABS: Hematocrit 46.4 % (40-54); Hemoglobin 14.7 g/dL (13.0-16.5); Mean Corp Hgb Conc 31.7 g/dL (32-36); Mean Corpuscular Hgb 29.1 pg (27.0-32.0); Mean Corpuscular Volume 91.9 fL (80-94); Mean Platelet Vol. 10.7 fl (6.2-12.0); Platelet Count 205 K/mm3 (150-450); RBC Distribution Width CV 14.2 % (11.6-14.6); RBC Distribution Width SD 47.8 fl (35.1-43.9); Red Blood Count 5.05 M/mm3 (4.6-6.2); White Blood Count 12.1 K/mm3 (4.4-11.0)
[2019-05-15 08:39] LABS: AST(SGOT) 26 U/L (15-37); Alanine Aminotransfer ALT/SGPT 10 U/L (16-61); Albumin, Serum 2.7 g/dL (3.2-5.0); Alkaline Phosphatase 109 U/L (45-117); Anion Gap 5 (5-15); BUN 18 mg/dL (7-18); BUN/Creat Ratio 18.8 RATIO (10-20); Bilirubin, Direct 0.12 mg/dL (0.00-0.30); Calcium,Total 8.5 mg/dL (8.5-10.1); Chloride 112 mmol/L (98-107); Cholesterol 103 mg/dL (200); Creatinine, Serum 0.96 mg/dL (0.70-1.30); EST Glomerular Filtration Rate 81 mL/min (>60); Est Glom Filt Rate - Afr Amer 98 mL/min (>60); Globulin 3.7 g/dL (2.2-4.2); Glucose 92 mg/dL (74-106); High Density Lipoprotein 32 mg/dL; Potassium 4.3 mmol/L (3.5-5.1); Protein, Total 6.4 g/dL (6.4-8.2); Sodium Level 143 mmol/L (136-145); Triglycerides 53 mg/dL; Very Low Density Lipoprotein 11 mg/dL (5-40)
[2019-05-15 08:52] LABS: Hemoglobin A1c 6.8 % (4.2-6.3)
== END ==
PROVIDERS: Visit Provider Family Medicine
DX: I10 Essential (primary) hypertension (principal); E11.9 Type 2 diabetes mellitus without complications
CPT/HCPCS: 36415; 80048; 80061; 80076; 83036; 85027

== ENCOUNTER → 2019-06-06 05:00 | Outpatient (REF) | payer MEDICARE, SELFPAY ==
[2018-12-25 11:03] VITALS: BMI 30.9
[2019-06-06 08:16] LABS: Absolute Lymphocyte Count 2.63 X10^3/uL (0.83-4.51); Absolute Neutrophil Count 7.8 X10^3/uL (2.0-7.7); Basophil# 0.09 X10^3/uL; Basophil% 0.8 % (0-1); Eosinophil# 0.43 X10^3/uL; Eosinophils% 3.7 % (0-5); Hematocrit 46.4 % (40-54); Hemoglobin 14.7 g/dL (13.0-16.5); Lymphocyte # 2.63 X10^3/ul (4.0); Lymphocyte % 22.8 % (19-41); Mean Corp Hgb Conc 31.7 g/dL (32-36); Mean Corpuscular Hgb 28.4 pg (27.0-32.0); Mean Corpuscular Volume 89.6 fL (80-94); Mean Platelet Vol. 10.5 fl (6.2-12.0); Monocyte# 0.55 X10^3/uL; Monocyte% 4.8 % (0-10); NRBC Flagged by Analyzer 0 % (0-5); Neutrophil # 7.81 X10^3/uL (2.7-7.7); Neutrophil % 67.6 % (47-70); Platelet Count 213 K/mm3 (150-450); RBC Distribution Width CV 14.2 % (11.6-14.6); RBC Distribution Width SD 46.1 fl (35.1-43.9); Red Blood Count 5.18 M/mm3 (4.6-6.2); White Blood Count 11.6 K/mm3 (4.4-11.0)
[2019-06-06 08:35] LABS: Anion Gap 7 (5-15); BUN 13 mg/dL (7-18); BUN/Creat Ratio 13.2 RATIO (10-20); Calcium,Total 8.4 mg/dL (8.5-10.1); Chloride 109 mmol/L (98-107); Creatinine, Serum 0.98 mg/dL (0.70-1.30); EST Glomerular Filtration Rate 78 mL/min (>60); Est Glom Filt Rate - Afr Amer 95 mL/min (>60); Glucose 94 mg/dL (74-106); Potassium 3.7 mmol/L (3.5-5.1); Sodium Level 145 mmol/L (136-145)
[2019-06-06 08:47] LABS: Hemoglobin A1c 6.6 % (4.2-6.3)
== END ==
PROVIDERS: Visit Provider Family Medicine
DX: R45.89 Other symptoms and signs involving emotional state (principal); F91.9 Conduct disorder, unspecified; E11.9 Type 2 diabetes mellitus without complications
CPT/HCPCS: 36415; 80048; 83036; 85025

== ENCOUNTER → 2019-08-13 05:00 | Outpatient (REF) | payer MEDICARE, SELFPAY ==
[2018-12-25 11:03] VITALS: BMI 30.9
[2019-08-13 07:56] LABS: Absolute Lymphocyte Count 2.39 X10^3/uL (0.83-4.51); Absolute Neutrophil Count 7.4 X10^3/uL (2.0-7.7); Basophil# 0.05 X10^3/uL; Basophil% 0.5 % (0-1); Eosinophil# 0.45 X10^3/uL; Eosinophils% 4.1 % (0-5); Hematocrit 46.5 % (40-54); Hemoglobin 14.3 g/dL (13.0-16.5); Lymphocyte # 2.39 X10^3/ul (4.0); Lymphocyte % 21.7 % (19-41); Mean Corp Hgb Conc 30.8 g/dL (32-36); Mean Corpuscular Hgb 27.9 pg (27.0-32.0); Mean Corpuscular Volume 90.6 fL (80-94); Mean Platelet Vol. 10.5 fl (6.2-12.0); Monocyte# 0.69 X10^3/uL; Monocyte% 6.3 % (0-10); NRBC Flagged by Analyzer 0 % (0-5); Neutrophil # 7.38 X10^3/uL (2.7-7.7); Neutrophil % 66.8 % (47-70); Platelet Count 175 K/mm3 (150-450); RBC Distribution Width CV 14.4 % (11.6-14.6); RBC Distribution Width SD 48.1 fl (35.1-43.9); Red Blood Count 5.13 M/mm3 (4.6-6.2)
[2019-08-13 08:29] LABS: Anion Gap 4 (5-15); BUN 20 mg/dL (7-18); Calcium,Total 8.3 mg/dL (8.5-10.1); Chloride 111 mmol/L (98-107); Creatinine, Serum 1.11 mg/dL (0.70-1.30); EST Glomerular Filtration Rate 68 mL/min (>60); Est Glom Filt Rate - Afr Amer 82 mL/min (>60); Glucose 174 mg/dL (74-106); Potassium 3.7 mmol/L (3.5-5.1); Sodium Level 143 mmol/L (136-145); Thyroid Stim Hormone (TSH) 4.39 uIU/mL (0.358-3.74)
[2019-08-13 08:53] LABS: BNP,B-Type NATRIURETIC PEPTIDE 95.4 pg/mL (0-100)
== END ==
PROVIDERS: PCP Family Medicine; Visit Provider Family Medicine
DX: E11.9 Type 2 diabetes mellitus without complications (principal); R60.9 Edema, unspecified; R06.2 Wheezing
CPT/HCPCS: 36415; 80048; 83880; 84443; 85025

== ENCOUNTER → 2019-10-01 06:50 | Outpatient (REF) | payer MEDICARE, SELFPAY ==
[2018-12-25 11:03] VITALS: BMI 30.9
== END ==
PROVIDERS: PCP Family Medicine; Visit Provider Family Medicine
DX: E03.9 Hypothyroidism, unspecified (principal)
CPT/HCPCS: 36415; 84443

== ENCOUNTER → 2019-10-29 05:00 | Outpatient (REF) | payer MEDICARE, SELFPAY ==
[2018-12-25 11:03] VITALS: BMI 30.9
[2019-10-29 08:02] LABS: Hematocrit 45.8 % (40-54); Hemoglobin 14.3 g/dL (13.0-16.5); Mean Corp Hgb Conc 31.2 g/dL (32-36); Mean Corpuscular Volume 89.6 fL (80-94); Mean Platelet Vol. 10.6 fl (6.2-12.0); Platelet Count 207 K/mm3 (150-450); RBC Distribution Width CV 14.3 % (11.6-14.6); Red Blood Count 5.11 M/mm3 (4.6-6.2); White Blood Count 13.1 K/mm3 (4.4-11.0)
[2019-10-29 08:20] LABS: Anion Gap 4 (5-15); BUN 18 mg/dL (7-18); BUN/Creat Ratio 17.8 RATIO (10-20); Calcium,Total 8.5 mg/dL (8.5-10.1); Chloride 111 mmol/L (98-107); Creatinine, Serum 1.01 mg/dL (0.70-1.30); EST Glomerular Filtration Rate 76 mL/min (>60); Est Glom Filt Rate - Afr Amer 92 mL/min (>60); Glucose 121 mg/dL (74-106); Potassium 3.7 mmol/L (3.5-5.1); Sodium Level 142 mmol/L (136-145)
[2019-10-29 08:21] LABS: Hemoglobin A1c 6.6 % (4.2-6.3)
== END ==
PROVIDERS: PCP Family Medicine; Visit Provider Family Medicine
DX: E03.9 Hypothyroidism, unspecified (principal); E11.9 Type 2 diabetes mellitus without complications
CPT/HCPCS: 36415; 80048; 83036; 85027

== ENCOUNTER 2020-01-28 15:26 | Emergency (ER) | payer MEDICARE, SELFPAY ==
[2018-12-25 11:03] VITALS: BMI 30.9
[2020-01-28 15:28] VITALS: BP 137/77; PULSE 64; RESP 17; TEMP 36.5; O2SAT 95; BMI 31.8
--- NOTE | 2020-01-28 16:35 | ED.DCSUM_ITS ---
- ER Visit Summary Date of Service: 01/28/20 Chief Complaint: Rash that itches History of Present Illness: The patient is a 79 M resident of [facility]. Extensive past medical history of prior stroke with right-sided paralysis, diabetes, hypertension, high cholesterol etc. Patient is on numerous medications. None are specifically new. No current antibiotics. He developed a rash last week. Initially that was being treated as shingles per his daughter. It has not gotten better does not spread. It also itches. Is primarily on his upper back and right upper extremity. He denies any nausea vomiting diarrhea or fever. Physical Examination: Well-appearing older male accompanied by his daughter vital signs are stable afebrile. He does not septic or toxic. He is no acute distress. H EENT exam unremarkable. Neck nontender. No lymphadenopathy. Lungs clear to auscultation bilaterally. Heart regular rhythm rate about 65 no murmur. Abdomen soft nontender normal bowel sounds no peritoneal signs. Extremities right sided flaccid paralysis of right upper and lower extremity. Left juabg-yut-oawz amputation. Left arm unremarkable. The arm has redness consistent with hives on the tricep region. Also on his upper back and upper chest. There is no sloughing of skin. No petechiae purpura. No vesicles. No abscesses. Not hot. It does tiff. This appears to be consistent with allergic reaction. Test Results: None Emergency Department Course and Treatment: Rash consistent allergic reaction. Clinically this is not shingles. Prednisone daily given first dose in the ER. Treatment Plan: Discharged back to [facility], [facility]. Prednisone 40 g a day for the next 6 days. If not improving or returns they need to further evaluate the cause. I reviewed his medication list he is on about 20 different medications. None of which are specifically new. No current antibiotics. Disposition: Discharge Impression: Acute pruritic rash secondary to generalized allergic reaction of uncertain etiology History of diabetes History of stroke with right-sided paralysis This note was generated with [employer] software. It may contain incorrect words, spelling, and punctuation that were not noted in review of the chart prior to signing ED Disposition - Plan for ED Patient: Referrals: Pearl Stanton MD [Primary Care Provider] -
--- NOTE | 2020-01-28 16:38 | DCINST.ED_ITS ---
ED Disposition - Plan for ED Patient: Disposition: Home or Assisted Living Instructions: ED General Allergic Reactions Prescriptions: Prednisone [Deltasone] 40 mg PO DAILY 6 Days tab Prescription Printed Referrals: Pearl Stanton MD [Primary Care Provider] - 3-5 Days if not improving Additional Instructions: Rash is not shingles is consistent with allergic reaction. I am not specifically sure what the reaction is to. It could be any medication or anything that he is exposed to. They can stop the medication as a reason to treat shingles. Start the prednisone 40 mg a day starting tomorrow. He was given a dose in the ER. The prednisone may increase his blood sugars that should be watched closely. If this is not improving he needs to see his primary care physician or a solar water heater installer for further evaluation.
[2020-01-28] MEDS: predniSONE 20 MG Tablet 60 MG PO (16:40)
--- NOTE | 2020-01-28 17:06 | ED.RN ---
THIS RN SPOKE WITH LENNOX CORONADO RN. INFORMED THAT PT WILL BE RETURNING BACK TO FACILITY. WAITING FOR TRANSPORTATION AT THS TIME.
[2020-01-28] MEDS: DiphenhydrAMINE 25 MG Capsule PO (18:09)
== END 2020-01-28 19:02 | disposition skilled nursing facility (03) ==
LOC: ED 16:45
PROVIDERS: Emergency Provider Emergency Medicine; PCP Family Medicine
DX: L29.9 Pruritus, unspecified (principal); T78.40XA Allergy, unspecified, initial encounter; I69.351 Hemiplegia and hemiparesis following cerebral infarction affecting right dominant side; X58.XXXA Exposure to other specified factors, initial encounter
CPT/HCPCS: 99283

== ENCOUNTER → 2020-02-13 10:30 | Outpatient (REF) | payer MEDICARE, SELFPAY ==
[2020-01-28 15:28] VITALS: BMI 31.8
[2020-02-13 12:39] LABS: Erythrocyte Sedimentation Rate 17 mm/hr (0-20)
[2020-02-13 12:41] LABS: Hematocrit 47.2 % (40-54); Hemoglobin 14.5 g/dL (13.0-16.5); Mean Corp Hgb Conc 30.7 g/dL (32-36); Mean Corpuscular Hgb 29.2 pg (27.0-32.0); Mean Platelet Vol. 11.6 fl (6.2-12.0); Platelet Count 193 K/mm3 (150-450); RBC Distribution Width CV 16.9 % (11.6-14.6); RBC Distribution Width SD 56.6 fl (35.1-43.9); Red Blood Count 4.97 M/mm3 (4.6-6.2); White Blood Count 14.8 K/mm3 (4.4-11.0)
[2020-02-13 12:45] LABS: Anion Gap 2 (5-15); BUN 25 mg/dL (7-18); BUN/Creat Ratio 23.8 RATIO (10-20); Chloride 112 mmol/L (98-107); Creatinine, Serum 1.05 mg/dL (0.70-1.30); EST Glomerular Filtration Rate 72 mL/min (>60); Est Glom Filt Rate - Afr Amer 88 mL/min (>60); Glucose 162 mg/dL (74-106); Potassium 3.9 mmol/L (3.5-5.1); Sodium Level 143 mmol/L (136-145)
== END ==
PROVIDERS: PCP Family Medicine; Referring Provider Family Medicine; Visit Provider Family Medicine
DX: R60.9 Edema, unspecified (principal); R21 Rash and other nonspecific skin eruption
CPT/HCPCS: 80048; 85027; 85652; 86140

== ENCOUNTER → 2020-03-11 08:00 | Outpatient (REF) | payer MEDICARE, SELFPAY ==
[2020-03-11 09:24] LABS: Vitamin D,25 Hydroxy 17.8 ng/mL
== END ==
PROVIDERS: PCP Family Medicine; Visit Provider Family Medicine
DX: R25.2 Cramp and spasm (principal); M79.10 Myalgia, unspecified site; E55.9 Vitamin D deficiency, unspecified
CPT/HCPCS: 82306

== ENCOUNTER → 2020-04-28 09:40 | Outpatient (REF) | payer MEDICARE, SELFPAY ==
[2020-04-28 11:55] LABS: Hematocrit 46.1 % (40-54); Hemoglobin 14.6 g/dL (13.0-16.5); Mean Corp Hgb Conc 31.7 g/dL (32-36); Mean Corpuscular Hgb 29.7 pg (27.0-32.0); Mean Corpuscular Volume 93.9 fL (80-94); Mean Platelet Vol. 11.4 fl (6.2-12.0); Platelet Count 211 K/mm3 (150-450); RBC Distribution Width CV 14.3 % (11.6-14.6); Red Blood Count 4.91 M/mm3 (4.6-6.2); White Blood Count 11.4 K/mm3 (4.4-11.0)
[2020-04-28 12:31] LABS: Anion Gap 6 (5-15); BUN 22 mg/dL (7-18); BUN/Creat Ratio 23.1 RATIO (10-20); Calcium,Total 8.3 mg/dL (8.5-10.1); Chloride 113 mmol/L (98-107); Cholesterol 111 mg/dL (200); Creatinine, Serum 0.95 mg/dL (0.70-1.30); EST Glomerular Filtration Rate 81 mL/min (>60); Est Glom Filt Rate - Afr Amer 98 mL/min (>60); Glucose 61 mg/dL (74-106); High Density Lipoprotein 36 mg/dL; Potassium 3.9 mmol/L (3.5-5.1); Sodium Level 146 mmol/L (136-145); Thyroid Stim Hormone (TSH) 4.82 uIU/mL (0.358-3.74); Triglycerides 95 mg/dL; Very Low Density Lipoprotein 19 mg/dL (5-40)
[2020-04-29 08:29] LABS: Vitamin D,25 Hydroxy 42.5 ng/mL
== END ==
PROVIDERS: PCP Family Medicine; Visit Provider Family Medicine
DX: E11.9 Type 2 diabetes mellitus without complications (principal); I10 Essential (primary) hypertension; E78.5 Hyperlipidemia, unspecified; E03.9 Hypothyroidism, unspecified; Z79.899 Other long term (current) drug therapy
CPT/HCPCS: 80048; 80061; 82306; 83036; 84443; 85027

== ENCOUNTER → 2020-05-19 05:00 | Outpatient (REF) | payer MEDICARE, SELFPAY ==
[2020-05-19 07:32] LABS: Hemoglobin 13.7 g/dL (13.0-16.5); Mean Corp Hgb Conc 31.1 g/dL (32-36); Mean Corpuscular Hgb 28.8 pg (27.0-32.0); Mean Corpuscular Volume 92.6 fL (80-94); Mean Platelet Vol. 10.7 fl (6.2-12.0); Platelet Count 221 K/mm3 (150-450); RBC Distribution Width CV 13.5 % (11.6-14.6); RBC Distribution Width SD 46.5 fl (35.1-43.9); Red Blood Count 4.75 M/mm3 (4.6-6.2); White Blood Count 10.4 K/mm3 (4.4-11.0)
[2020-05-19 07:33] LABS: Valproic Acid (Depakene) Level 10 ug/mL (50-100)
== END ==
PROVIDERS: PCP Family Medicine; Visit Provider Family Medicine
DX: E78.5 Hyperlipidemia, unspecified (principal); I51.9 Heart disease, unspecified; Z79.899 Other long term (current) drug therapy
CPT/HCPCS: 36415; 80164; 85027

== ENCOUNTER → 2020-06-22 07:15 | Outpatient (REF) | payer MEDICARE, SELFPAY ==
[2020-06-22 07:40] LABS: Hemoglobin 14.6 g/dL (13.0-16.5); Mean Corp Hgb Conc 31.1 g/dL (32-36); Mean Corpuscular Hgb 28.2 pg (27.0-32.0); Mean Corpuscular Volume 90.9 fL (80-94); Mean Platelet Vol. 10.2 fl (6.2-12.0); Platelet Count 198 K/mm3 (150-450); RBC Distribution Width CV 13.3 % (11.6-14.6); RBC Distribution Width SD 44.5 fl (35.1-43.9); Red Blood Count 5.17 M/mm3 (4.6-6.2); White Blood Count 12.2 K/mm3 (4.4-11.0)
[2020-06-22 08:42] LABS: Valproic Acid (Depakene) Level 14 ug/mL (50-100)
[2020-06-22 11:33] LABS: Thyroid Stim Hormone (TSH) 6.16 uIU/mL (0.358-3.74)
== END ==
PROVIDERS: PCP Family Medicine
DX: R46.89 Other symptoms and signs involving appearance and behavior (principal); E03.9 Hypothyroidism, unspecified; Z79.899 Other long term (current) drug therapy
CPT/HCPCS: 36415; 80164; 84443; 85027

== ENCOUNTER → 2020-08-12 05:00 | Outpatient (REF) | payer MEDICARE, SELFPAY ==
[2020-08-12 09:34] LABS: Thyroid Stim Hormone (TSH) 6.16 uIU/mL (0.358-3.74)
== END ==
PROVIDERS: PCP Family Medicine; Visit Provider Family Medicine
DX: E03.9 Hypothyroidism, unspecified (principal)
CPT/HCPCS: 36415; 84443

== ENCOUNTER 2020-08-28 17:41 | Emergency (ER) | payer MEDICARE, SELFPAY ==
[2020-08-28 17:44] VITALS: BP 167/78; PULSE 84; RESP 19; TEMP 37; O2SAT 95; BMI 35.5
--- NOTE | 2020-08-28 18:05 | ED.VIS.GEN ---
History of Present Illness Chief Complaint: Abd Pain Informant: Patient Narrative: Patient sent in from [facility] for further evaluation. Patient does not really know why he is here. Per report from EMS patient's had increased number of bowel movements, abdominal distention, and an x-ray today that showed a lot of air. PCP wanted a CT scan. Patient denies any abdominal pain. He does admit to some vomiting and diarrhea recently. - Past Medical History (1) ICH (intracerebral hemorrhage) Status: Resolved (2) Benign prostatic hyperplasia Status: Chronic (3) History of left lower extremity amputation Status: Chronic Comment: age 8 after trauma, leg crushed by rock (4) Hyperlipidemia Status: Chronic (5) Hypertension Status: Chronic (6) Obstructive sleep apnea Status: Chronic (7) Osteoarthritis Status: Chronic (8) Restless leg syndrome Status: Chronic (9) Type 2 diabetes mellitus Status: Chronic Past Medical History - Allergies and Home Meds Allergies/Adverse Reactions: Allergies liraglutide [From Victoza] Adverse Reaction (Severe, Verified 08/28/20 17:50) Diarrhea Primary Care Physician: Pearl Stanton MD [Primary Care Provider] - 1 Week if not improving Prior records reviewed: Yes Surgical History: total knee arthroplasty, - - Past history of ubnol-lqs-jzau amputation on the left secondary to trauma when the patient was 14 years old Lives: [facility] Smoking Status: Unknown if ever smoked - Family History Maternal Family History: Family History (Last Reviewed 09/20/19 @ 16:06 by Jeimy Parker) Father Negative for ASCVD Mother Negative for ASCVD Family History: Reports: Cancer Paternal Family History: Family History (Last Reviewed 09/20/19 @ 16:06 by Jeimy Parker) Father Negative for ASCVD Mother Negative for ASCVD Family History: Reports: Cancer Sibling Family History: Family History (Last Reviewed 09/20/19 @ 16:06 by Jeimy Parker) Father Negative for ASCVD Mother Negative for ASCVD Family History: Reports: Heart Disease Review of Systems General: Denies: Chills, Fever ENT: Denies: Bilateral ear pain Cardiovascular: Denies: Chest pain Respiratory: Denies: Dyspnea, Cough Gastrointestinal: Reports: Vomiting, Diarrhea. Denies: Abdominal pain Genitourinary: Denies: Dysuria Musculoskeletal: Denies: Extremity Pain Skin: Denies: Rash Neurological: Denies: Headache Hematologic: Denies: Easy bruising, Easy bleeding Allergy: Denies: Uticaria Physical Exam Vital Signs/Narrative: Vital Signs Temp Pulse Resp BP Pulse Ox 08/28/20 17:44 98.6 F 84 19 H 167/78 H 95 Inital Vital Signs reviewed: Yes General: Well nourished, Well developed Head: Normocephalic Cardiovascular: Regular rate, Regular rhythm Respiratory: No distress, CTA bilaterally Abdomen: Soft, Nontender, Hyperactive bowel sounds, - - Abdomen is distended Extremities: - - Left AKA Skin: Normal color Neurological: Alert Diagnostic/Tx/Re-eval Impressions Abdomen/Pelvis CT 08/28/20 20:00 IMPRESSION: Normal enhanced CT of the abdomen and pelvis. Electronically Signed: Elie Trujillo MD at 20:16 EST Tel , Service support , 08/28/20 20:00 Abdomen/Pelvis WITH Contrast [CT] Stat Laboratory Results 08/28/20 08/28/20 08/28/20 18:25 18:25 18:25 WBC 13.1 H RBC 4.98 Hgb 14.3 Hct 44.8 MCV 90.0 MCH 28.7 MCHC 31.9 L RDW Std Deviation 45.7 H RDW Coeff of Claude 13.9 Plt Count 224 MPV 10.7 Immature Gran % (Auto) 0.800 Neut % (Auto) 67.5 Lymph % (Auto) 21.3 [place] % (Auto) 5.5 Eos % (Auto) 4.4 Baso % (Auto) 0.5 Absolute Neuts (auto) 8.9 H Absolute Lymphs (auto) 2.80 Nucleated RBC % 0 Sodium 143 Potassium 3.5 Chloride 109 H Carbon Dioxide 29.0 Anion Gap 5 BUN 22 H Creatinine 1.30 Estim Creat Clear Calc 49.07 Est GFR (MDRD) Af Amer 68 Est GFR (MDRD) Non-Af 57 L BUN/Creatinine Ratio 16.9 Glucose 126 H Calcium 8.6 Total Bilirubin 0.60 0.60 Direct Bilirubin 0.12 0.13 AST 12 L 11 L ALT 13 L 13 L Alkaline Phosphatase 130 H 131 H Total Protein 7.0 7.0 Albumin 2.9 L 2.8 L Globulin 4.1 4.2 - Medical Decision Making Patient is been stable throughout his ED stay. White count is slightly elevated. Remainder blood work is largely unremarkable. CT scan abdomen pelvis with contrast is unremarkable. Test results discussed with patient and daughter at bedside. We will straight cath him for urine and check that quickly for discharge. I will speak with Dr. Chambers, on-call Dr. Stanton to update him on the patient's findings as well. Addendum: Patient's urine returned just prior to the patient being transported back to [facility]. Patient does have greater than 100 white cells with positive nitrites with 1+ bacteria. He will be given a dose of Bactrim here and a prescription for 3 days of Bactrim. ED Disposition - Plan for ED Patient: Disposition: Home or Assisted Living Diagnosis: Diarrhea, UTI (urinary tract infection) Instructions: ED Diarrhea, Unknown Cause Prescriptions: Smz/Tmp Ds [Bactrim Ds] 1 tab PO BID #6 tab Prescription Printed Referrals: Pearl Stanton MD [Primary Care Provider] - 1 Week if not improving
[2020-08-28 18:27] VITALS: BP 167/82; PULSE 93
[2020-08-28 18:52] LABS: Absolute Neutrophil Count 8.9 X10^3/uL (2.0-7.7); Basophil# 0.07 X10^3/uL; Basophil% 0.5 % (0-1); Eosinophil# 0.58 X10^3/uL; Eosinophils% 4.4 % (0-5); Hematocrit 44.8 % (40-54); Hemoglobin 14.3 g/dL (13.0-16.5); Lymphocyte % 21.3 % (19-41); Mean Corp Hgb Conc 31.9 g/dL (32-36); Mean Corpuscular Hgb 28.7 pg (27.0-32.0); Mean Platelet Vol. 10.7 fl (6.2-12.0); Monocyte# 0.72 X10^3/uL; Monocyte% 5.5 % (0-10); NRBC Flagged by Analyzer 0 % (0-5); Neutrophil # 8.85 X10^3/uL (2.7-7.7); Neutrophil % 67.5 % (47-70); Platelet Count 224 K/mm3 (150-450); RBC Distribution Width CV 13.9 % (11.6-14.6); RBC Distribution Width SD 45.7 fl (35.1-43.9); Red Blood Count 4.98 M/mm3 (4.6-6.2); White Blood Count 13.1 K/mm3 (4.4-11.0)
[2020-08-28 19:08] LABS: AST(SGOT) 11 U/L (15-37); Alanine Aminotransfer ALT/SGPT 13 U/L (16-61); Albumin, Serum 2.8 g/dL (3.2-5.0); Alkaline Phosphatase 131 U/L (45-117); Bilirubin, Direct 0.13 mg/dL (0.00-0.30); Globulin 4.2 g/dL (2.2-4.2)
[2020-08-28 19:37] LABS: AST(SGOT) 12 U/L (15-37); Alanine Aminotransfer ALT/SGPT 13 U/L (16-61); Albumin, Serum 2.9 g/dL (3.2-5.0); Alkaline Phosphatase 130 U/L (45-117); Anion Gap 5 (5-15); BUN 22 mg/dL (7-18); BUN/Creat Ratio 16.9 RATIO (10-20); Bilirubin, Direct 0.12 mg/dL (0.00-0.30); Calcium,Total 8.6 mg/dL (8.5-10.1); Chloride 109 mmol/L (98-107); EST Glomerular Filtration Rate 57 mL/min (>60); Est Glom Filt Rate - Afr Amer 68 mL/min (>60); Estimated Creatinine Clearance 49.07 ml/min; Globulin 4.1 g/dL (2.2-4.2); Glucose 126 mg/dL (74-106); Potassium 3.5 mmol/L (3.5-5.1); Sodium Level 143 mmol/L (136-145)
--- NOTE | 2020-08-28 20:00 | CT_ITS ---
STUDY: CT ABDOMEN AND PELVIS WITH CONTRAST REASON FOR EXAM: Male, 80 years old. Abdominal pain RADIATION DOSAGE (If Supplied By Facility): CTDIvol = ( 18.73 ) mGy, DLP = ( 1488.76 ) mGycm TECHNIQUE: CT images were obtained from the dome of the diaphragm to the symphysis pubis without oral contrast. Oral and amp; IV Gastrografin and amp; 100mL Isovue-370 was administered. Sagittal and coronal images were reconstructed. Individualized dose optimization techniques were used for this CT. COMPARISON: None. FINDINGS: There is bilateral basal atelectasis. Normal liver. Normal gallbladder and extrahepatic biliary system. Normal spleen. Normal pancreas. Normal bilateral adrenal glands. Normal right kidney. Normal left kidney. Normal visualized stomach. Normal small intestine. Normal colon. The appendix is visualized and appears normal. Normal abdominal aorta. Normal inferior vena cava. Normal retroperitoneum. Normal urinary bladder. Normal abdominal wall. Normal osseous structures. CT/Abdomen/Pelvis WITH Contrast IMPRESSION: Normal enhanced CT of the abdomen and pelvis. Electronically Signed: Elie Trujillo MD at 20:16 EST Tel , Service support ,
[2020-08-28 21:31] LABS: Mucous, Urine 0 SEEN /hpf (<or=2+); Squamous Epithelial Cells - UA 0 SEEN /hpf (0-5)
[2020-08-28 21:32] LABS: Glucose, Dipstick Normal (Normal); Ketone-Dipstick 5 mg/dl (Negative); Leukocyte Esterase-Dipstick 500 /ul (Negative); Nitrite-Dipstick Positive (Negative); Occult Blood-Urine 250 /ul (Negative); Protein-Dipstick 30 mg/dl (Negative); Specific Gravity, Urine 1.015 (1.002-1.030); Urine Bilirubin Dipstick Negative (Negative); Urine Urobilinogen 8 mg/dl (Normal); Urine pH 6.5 (5.0 - 8.0)
[2020-08-28 21:33] LABS: Color, Urine Yellow (Yellow); Urine Clarity Cloudy (Clear)
[2020-08-28 21:40] VITALS: BP 165/78; PULSE 84; RESP 20; O2SAT 94
[2020-08-28 21:40] LABS: White Blood Cells >100 SEEN /hpf (0-5)
[2020-08-28 21:41] LABS: Bacteria 1+ /hpf (None Seen); Red Blood Cells-Urine > 100 SEEN /hpf (0-5)
[2020-08-28] MEDS: Smz/Tmp Ds Tablet 1 TABLET PO (21:52)
== END 2020-08-28 22:00 | disposition home or self-care (01) ==
PROVIDERS: Emergency Provider Emergency Medicine; PCP Family Medicine
DX: R19.7 Diarrhea, unspecified (principal); N39.0 Urinary tract infection, site not specified; E11.9 Type 2 diabetes mellitus without complications; E78.5 Hyperlipidemia, unspecified; I10 Essential (primary) hypertension; Z89.612 Acquired absence of left leg above knee; Z79.4 Long term (current) use of insulin; Z79.899 Other long term (current) drug therapy
CPT/HCPCS: 74177; 80048; 80076; 81001; 85025; 99285; Q9967; A4216

== ENCOUNTER 2020-09-04 08:19 | Inpatient (IN) | payer MEDICARE, SELFPAY ==
[2020-09-04] VITALS (20 sets, daily range): BP systolic 100–159; BP diastolic 52–99; PULSE 96–110; RESP 22–40; TEMP 36.8–39; O2SAT 90–97; BMI 37.3; BMI 34.0
[2020-09-04 08:30] LABS: Bedside Glucose 128 mg/dL (70-110)
--- NOTE | 2020-09-04 08:34 | CT_ITS ---
STUDY: CT BRAIN WITHOUT CONTRAST REASON FOR EXAM: Male, 80 years old. RT SIDED FACIAL DROOP, INCREASED CONFUSION RADIATION DOSAGE (If Supplied By Facility): CTDIvol = ( 44.99 ) mGy, DLP = ( 829.85 ) mGycm TECHNIQUE: Transaxial CT imaging of the brain was performed without administration of intravenous contrast material. Individualized dose optimization techniques were used for this CT. COMPARISON: November 13, 2018 FINDINGS: Normal soft tissue structures. There is stable left frontal craniotomy There is mild cerebral atrophy with widening of the extra-axial spaces and ventricular dilatation. There are areas of decreased attenuation within the white matter tracts of the supratentorial brain, consistent with microvascular disease changes. There is left frontal and temporal volume loss and encephalomalacia. Left basal ganglia infarct. Normal brainstem. Normal cerebellum. There is no intracranial hemorrhage. There are no findings of an acute ischemic infarction. Normal visualized paranasal sinuses. CT/Brain/Head without Contrast IMPRESSION: Chronic involutional changes of the brain. Electronically Signed: Bertram Young MD at 9:15 EST , Service support ,
--- NOTE | 2020-09-04 08:34 | EKG12_ITS ---
Test Reason : ALTERED MENTAL URRUTIA Blood Pressure : / mmHG Vent. Rate : 098 BPM Atrial Rate : 064 BPM P-R Int : 000 ms QRS Dur : 132 ms QT Int : 376 ms P-R-T Axes : 000 052 036 degrees QTc Int : 480 ms Significant baseline artifact; possible Sinus Rhythm Right bundle branch block Abnormal ECG Confirmed by CORRINA CORTEZ, MARINA ([id number]), video news editor RALEIGH MOREIRA ([id number]) on 09/07/2020 11:38:06 A M Referred By: RUIZ Confirmed By:TONY HOUSER MD
--- NOTE | 2020-09-04 08:36 | ED.VISSUMM ---
- ER Visit Summary Date of Service: 09/04/20 Chief Complaint: Right facial weakness History of Present Illness: The patient is a 80 M who presents with right facial weakness that was noticed this morning when he woke up. Patient has a history of prior strokes with right-sided weakness and garbled speech. The right facial weakness is the only new symptom today. Patient went to bed at 1930 last night with no facial weakness. Patient had an episode of nausea and vomiting today. Patient has garbled speech and is a poor historian. Daughter reports the patient did have a urinary tract infection last week. Patient was treated for this with a course of antibiotics. Physical Examination: Vital signs are stable except for tachypnea of 29. Patient is afebrile. Patient is in no acute distress. Oral mucosa is pink and moist. Tongue is midline. Cranial nerves II through XII are intact except for some mild facial weakness on the right. Strength is 5/5 in the left upper extremity. 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 Patient is able to flex his thigh and hold it up. Strength is 0/5 in the right upper and lower extremities. There are no visual field defects. Heart was regular rate and rhythm. Lungs are diminished with some scattered rhonchi. There is adequate respiratory effort. Abdomen is soft. Bowel sounds are normal. There is no apparent tenderness. There is no distention. Test Results: EKG was obtained. On my interpretation, there is a normal sinus rhythm with a rate of 98. There is a right bundle branch block pattern. There are no acute ST or T wave changes. There is a lot of baseline artifact. This was unchanged compared to previous EKG dated 06/26/2018. CBC shows a leukocytosis of 15.4. Comprehensive metabolic profile shows a slightly elevated creatinine of 1.9. This is slightly increased from previous result of 1.3. PT with INR and PTT were within normal limits. Troponin was normal. Lactate was normal. Urinalysis shows leukocyte esterase of 500 with positive nitrites and 25-50 white blood cells. Urine culture was ordered. Portable chest x-ray was obtained. There is 1 view. On my interpretation, there is some mild vascular digestion. Bony thorax is normal. There is no pneumothorax. Radiologist also interpreted the x-ray and agrees. CT scan of the brain was obtained. There are chronic changes but no acute infarct. This was all interpreted by the radiologist and reviewed by myself. Emergency Department Course and Treatment: Patient was given IV fluids and Zofran initially. Patient was started on Rocephin. I do not feel the patient is a candidate for TPA given that his only new symptom is right facial weakness and his last known well is 13 hours prior to arrival. Case was discussed with the hospitalist. He will admit the patient to the hospital. Patient and family understood and were agreeable with the plan. All questions were answered. Disposition: Admit to hospital Impression: 1. Acute kidney injury 2. Urinary tract infection 3. Sepsis This note was generated with Trippy dictation software. It may contain incorrect words, spelling, and punctuation that were not noted in review of the chart prior to signing ED Disposition - Plan for ED Patient: Disposition: Acute Care Hospital [facility] Diagnosis: Acute kidney injury, Urinary tract infection, Sepsis Referrals: Pearl Stanton MD [Primary Care Provider] -
--- NOTE | 2020-09-04 08:47 | RAD_ITS ---
STUDY: X-RAY CHEST REASON FOR EXAM: Male, 80 years old. ALTERED MENTAL STATUS -- HX OF CVA TECHNIQUE: Single AP portable view of the chest. COMPARISON: 06/26/2018. FINDINGS: Low lung volumes. Cardiac silhouette unremarkable. Pulmonary vascular congestion/crowding. Aorta calcified. No focal patchy airspace opacities. No pleural effusions. Upper abdomen unremarkable. Osseous structures intact with degenerative findings. No pneumothorax. RAD/Chest 1 View (Portable) IMPRESSION: Pulmonary vascular congestion/crowding Electronically Signed: Garfield Conde DO at 9:08 EST Tel , Service support ,
[2020-09-04 08:48] LABS: Absolute Lymphocyte Count 1.38 X10^3/uL (0.83-4.51); Basophil# 0.05 X10^3/uL; Basophil% 0.3 % (0-1); Eosinophil# 0.33 X10^3/uL; Eosinophils% 2.1 % (0-5); Hematocrit 47.1 % (40-54); Hemoglobin 15.1 g/dL (13.0-16.5); Lymphocyte # 1.38 X10^3/ul (4.0); Mean Corp Hgb Conc 32.1 g/dL (32-36); Mean Corpuscular Hgb 28.5 pg (27.0-32.0); Mean Platelet Vol. 9.5 fl (6.2-12.0); Monocyte# 0.59 X10^3/uL; Monocyte% 3.8 % (0-10); NRBC Flagged by Analyzer 0 % (0-5); Neutrophil # 12.96 X10^3/uL (2.7-7.7); Neutrophil % 84.2 % (47-70); Platelet Count 232 K/mm3 (150-450); RBC Distribution Width CV 13.9 % (11.6-14.6); RBC Distribution Width SD 44.8 fl (35.1-43.9); Red Blood Count 5.29 M/mm3 (4.6-6.2); White Blood Count 15.4 K/mm3 (4.4-11.0)
[2020-09-04 08:56] LABS: International Normalized Ratio 1.3; Prothrombin Time (Protime)PT. 15.2 SECONDS (11.7-14.9)
[2020-09-04 08:58] LABS: Partial Thromboplast Time 31.7 Seconds (24.1-36.2)
[2020-09-04 09:06] LABS: ALB/GLOB Ratio 0.7 RATIO (0.9-2.4); AST(SGOT) 23 U/L (15-37); Alanine Aminotransfer ALT/SGPT 16 U/L (16-61); Albumin, Serum 3.1 g/dL (3.2-5.0); Alkaline Phosphatase 116 U/L (45-117); Anion Gap 5 (5-15); BUN 29 mg/dL (7-18); BUN/Creat Ratio 15.3 RATIO (10-20); Calcium,Total 8.8 mg/dL (8.5-10.1); Chloride 106 mmol/L (98-107); EST Glomerular Filtration Rate 37 mL/min (>60); Est Glom Filt Rate - Afr Amer 44 mL/min (>60); Estimated Creatinine Clearance 32.55 ml/min; Globulin 4.2 g/dL (2.2-4.2); Glucose 131 mg/dL (74-106); Potassium 4.6 mmol/L (3.5-5.1); Protein, Total 7.3 g/dL (6.4-8.2); Sodium Level 141 mmol/L (136-145)
[2020-09-04] MEDS: Ondansetron 4 MG/2 ML Vial IV (09:07)
[2020-09-04 09:21] LABS: Lactic Acid 1.6 mmol/L (0.4-1.9)
[2020-09-04 09:26] LABS: Bacteria 0 SEEN /hpf (None Seen); Mucous, Urine 0 SEEN /hpf (<or=2+); Squamous Epithelial Cells - UA 0 SEEN /hpf (0-5)
[2020-09-04 09:30] LABS: Color, Urine Yellow (Yellow); Glucose, Dipstick Normal (Normal); Ketone-Dipstick Negative (Negative); Leukocyte Esterase-Dipstick 500 /ul (Negative); Nitrite-Dipstick Positive (Negative); Occult Blood-Urine 150 /ul (Negative); Protein-Dipstick Negative (Negative); Urine Bilirubin Dipstick Negative (Negative); Urine Clarity Sl. Cloudy (Clear); Urine Urobilinogen Normal (Normal)
[2020-09-04 09:39] LABS: Red Blood Cells-Urine 10-25 SEEN /hpf (0-5); White Blood Cells 25-50 SEEN /hpf (0-5)
--- NOTE | 2020-09-04 10:03 | NURSING ---
DR BLANTON FOR DR MELCHOR
--- NOTE | 2020-09-04 10:10 | NURSING ---
MED SURG [facility] ACUTE KIDNEY INJURY, UTI, SEPSIS
[2020-09-04] MEDS: 0.9% Normal Saline 1,000 ML 1000 ML IV (10:35)
[2020-09-04] MEDS: Ceftriaxone 1 GM/50 ML BAG IV (10:35)
--- NOTE | 2020-09-04 10:49 | PCS.PANDOC ---
PANDEMIC DOCUMENTATION INITIATED: Date: 09/04/20 Time: 1162
[2020-09-04 13:11] LABS: Bedside Glucose 138 mg/dL (70-110)
--- NOTE | 2020-09-04 13:21 | PCM.HP.STD ---
Problem List (1) ICH (intracerebral hemorrhage) Status: Resolved (2) Acute kidney injury Status: Acute (3) Urinary tract infection Status: Acute (4) Sepsis Status: Acute (5) Diastolic dysfunction Status: Chronic (6) Chronic renal insufficiency Status: Chronic (7) History of total right knee replacement Status: Chronic (8) History of left lower extremity amputation Status: Chronic Comment: age 8 after trauma, leg crushed by rock (9) Hyperlipidemia Status: Chronic Qualifiers: (10) Osteoarthritis Status: Chronic (11) Restless leg syndrome Status: Chronic (12) Benign prostatic hyperplasia Status: Chronic (13) Hypertension Status: Chronic Qualifiers: (14) Obstructive sleep apnea Status: Chronic (15) Type 2 diabetes mellitus Status: Chronic History of Present Illness Date of Admission: 09/04/20 Chief Complaint: Confusion, shortness of breath. The patient is a 80 year old M who presents the emergency room from assisted living facility due to confusion and shortness of breath. Patient was recently seen in emergency room 08/28/2020 for abdominal distention, nausea and vomiting. CAT scan at that time was unremarkable. Patient was found to have UTI and was discharged on 3 days of Bactrim. Patient was noticed today by nursing to appear tachypneic and and was noted to be confused. Patient's daughter at bedside states patient is typically alert and oriented however he does have some garbled speech and mild chronic right facial droop from prior CVA. Patient is unable to state any symptoms or complaints. HPI provided by patient's daughter. She denies any other known symptoms or recent illness however she states she has not been able to see patient at assisted living facility due to Covid precautions. 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 Past Medical History Past Medical History (Chronic Problems): Chronic Problems (Last Reviewed 09/20/19 @ 16:06 by Jeimy Parker) Diastolic dysfunction (Chronic) Chronic renal insufficiency (Chronic) History of total right knee replacement (Chronic) History of left lower extremity amputation (Chronic) age 8 after trauma, leg crushed by rock Hyperlipidemia (Chronic) Osteoarthritis (Chronic) Restless leg syndrome (Chronic) Benign prostatic hyperplasia (Chronic) Hypertension (Chronic) Obstructive sleep apnea (Chronic) Type 2 diabetes mellitus (Chronic) Medical History: Medical History (Last Reviewed 09/20/19 @ 16:06 by Jeimy Parker) Chronic renal insufficiency (Chronic) N18.9 Hyperlipidemia (Chronic) E78.5 Benign prostatic hyperplasia (Chronic) N40.0 Hypertension (Chronic) I10 Obstructive sleep apnea (Chronic) G47.33 Type 2 diabetes mellitus (Chronic) E11.9 Allergies liraglutide [From Victoza] Adverse Reaction (Severe, Verified 09/04/20 08:19) Diarrhea Home Medications: Ambulatory Orders Medication Instructions Recorded Acetaminophen 2 tab PO Q4H PRN 09/04/20 Acetaminophen [Tylenol] 650 mg RECTAL Q4H PRN PRN 09/04/20 Apixaban [Eliquis] 5 mg PO BID 09/04/20 Atorvastatin Calcium [Lipitor] 20 mg PO QHS 09/04/20 Betamethasone Dipropionate 1 applicatio TP MOWEFR 09/04/20 Bisacodyl 10 mg RC DAILY PRN 09/04/20 Carvedilol [Coreg] 12.5 mg PO BID 09/04/20 Cholecalciferol (Vitamin D3) 125 mcg PO TH 09/04/20 [Vitamin D3] Divalproex Sprinkles [Depakote 125 mg PO BID 09/04/20 Sprinkles] Dorzolamide HCL/Timolol [Cosopt 1 drp EACH EYE DAILY 09/04/20 Opth Drops] Finasteride [Proscar] 5 mg PO DAILY 09/04/20 Furosemide [Lasix] 20 mg PO DAILY 09/04/20 Gabapentin [Neurontin] 500 mg PO 0800 09/04/20 Guaifenesin [Robitussin] 10 ml PO Q4H PRN PRN 09/04/20 Hydroxyzine HCl 25 mg PO BID PRN 09/04/20 Insulin Glargine,Hum.rec.anlog 24 unit SC BID 09/04/20 [Lantus] Insulin Lispro [Humalog] 8 unit SC TIDCM 09/04/20 Ketoconazole 1 applic TP DAILY 09/04/20 Latanoprost 0.005% [Xalatan 1 drp EACH EYE QHS 09/04/20 Opthalmic] Levothyroxine [Synthroid] 75 mcg PO DAILY 09/04/20 Lorazepam 0.5 tab PO BID PRN 09/04/20 Mag Hydrox/Aluminum Hyd/Simeth 30 ml PO DAILY PRN 09/04/20 [Mi-Acid 400-400-40 mg/10 ml Lq] Melatonin 2 tab PO QHS PRN 09/04/20 Menthol/Lanolin/Calamine/Znox 1 applic TP TID PRN 09/04/20 [Calmoseptine Ointment] Methyl Salicylate/Menthol [Muscle 1 applic TP TID PRN 09/04/20 Rub Cream] Nystatin Powder [Mycostatin Powder] 1 applic TOPICAL DAILY PRN 09/04/20 Ondansetron [Zofran Odt] 4 mg PO Q8H PRN PRN 09/04/20 Polyethylene Glycol 3350 [Miralax] 17 gm PO PRN PRN 09/04/20 Sennosides/Docusate Sodium 1 ea PO DAILY PRN 09/04/20 [Senna-S Tablet] Sertraline HCl [Zoloft] 150 mg PO DAILY 09/04/20 Sitagliptin Phosphate [Januvia] 50 mg PO DAILY 09/04/20 Sodium Phosphate,Bergen-Dibasic 133 ml RC DAILY PRN 09/04/20 [Enema Jqgii-Fc-May] Tamsulosin HCl [Flomax] 0.4 mg PO DAILY 09/04/20 Triamcinolone 0.1% Cream [Kenalog] 1 applic TOPICAL BID 09/04/20 Surgical History: Surgical History (Last Reviewed 09/20/19 @ 16:06 by Jeimy Parker) History of total right knee replacement (Chronic) Z96.651 History of left lower extremity amputation (Chronic) Z89.612 age 8 after trauma, leg crushed by rock Surgical History: total knee arthroplasty, - - Past history of jfiqg-bac-caik amputation on the left secondary to trauma when the patient was 14 years old Psychiatric History: No pertinent psych hx Lives: [facility] - Assisted living Smoking Status: Never smoker Tobacco Use: Non-smoker Alcohol: None Drugs: None - *Family History Maternal Family History: Family History (Last Reviewed 09/04/20 @ 13:28 by Magui Grullon DIAMOND SIZER, DIAMOND SIZER-C) Father Negative for ASCVD Mother Negative for ASCVD History Items: Cancer Paternal Family History: Family History (Last Reviewed 09/04/20 @ 13:28 by Magui Grullon NP, DIAMOND SIZER-C) Father Negative for ASCVD Mother Negative for ASCVD History Items: Cancer Sibling Family History: Family History (Last Reviewed 09/04/20 @ 13:28 by Magui Grullon NP, DIAMOND SIZER-C) Father Negative for ASCVD Mother Negative for ASCVD History Items: Heart Disease Review of Systems Unable to obtain accurate/complete ROS d/t: Unable to obtain due to patient confusion VTE Information - Inpt Only VTE Present on Admission: No VTE Mechan Device Prophylaxis: None VTE Pharm Prophylaxis ordered?: No Reason prophylaxis not ordered:: Treatment Not Indicated - Already on anticoagulation with Eliquis Patient Problems: Active and Suspected Problems (Last Reviewed 09/20/19 @ 16:06 by Jeiym Parker) Acute kidney injury (Acute) Urinary tract infection (Acute) Sepsis (Acute) - Physical Exam Vitals/I&O's: Vital Signs Temp Pulse Resp BP Pulse Ox 98.7 F 105 H 36 H 109/79 96 09/04/20 12:48 09/04/20 13:02 09/04/20 12:48 09/04/20 12:48 09/04/20 12:48 Oxygen Flow Rate (L/min) 2 Oxygen Delivery Method Nasal Cannula Weight: 243 lb 11.2 oz Body Mass Index (BMI) 34.0 Finger Stick Blood Glucose 125 Intake and Output for Last 24 Hours 09/02/20 09/03/20 09/04/20 23:59 23:59 23:59 Intake Total 1050 / 1050 Balance 1050 / 1050 General: Alert, - - Confused HEENT: Atraumatic, PERRLA, EOMI, Normocephalic Oral: Dry Mucosa Neck: Supple, No JVD, Negative Carotid Bruits Lungs: Clear to auscultation, Diminished, Tachypneic Cardiovascular: Regular rate, No murmurs Abdomen: Bowel Sounds Present, Soft, Non Tender, Non-Distended, Obese Extremities: No clubbing, No cyanosis, No edema, - - Left AKA Skin: No rashes, No breakdown Musculoskeletal: No Tenderness to Palpation of Joints or Extremities Neurological: Cranial nerves II-XII grossly intact, - - Right-sided hemiparesis from prior CVA Psych/Mental Status: Normal Affect Laboratory Results 09/04/20 08:25: POC Glucose 128 H 09/04/20 08:37: WBC 15.4 H, RBC 5.29, Hgb 15.1, Hct 47.1, MCV 89.0, MCH 28.5, MCHC 32.1, RDW Std Deviation 44.8 H, RDW Coeff of Claude 13.9, Plt Count 232, MPV 9.5, Immature Gran % (Auto) 0.600, Neut % (Auto) 84.2 H, Lymph % (Auto) 9.0 L, Bergen % (Auto) 3.8, Eos % (Auto) 2.1, Baso % (Auto) 0.3, Absolute Neuts (auto) 13.0 H, Absolute Lymphs (auto) 1.38, Nucleated RBC % 0 09/04/20 08:37: PT 15.2 H, INR 1.3, APTT 31.7 09/04/20 08:37: Sodium 141, Potassium 4.6, Chloride 106, Carbon Dioxide 30.0, Anion Gap 5, BUN 29 H, Creatinine 1.90 H, Estim Creat Clear Calc 32.55, Est GFR (MDRD) Af Amer 44 L, Est GFR (MDRD) Non-Af 37 L, BUN/Creatinine Ratio 15.3, Glucose 131 H, Calcium 8.8, Total Bilirubin 0.90, AST 23, ALT 16, Alkaline Phosphatase 116, Troponin I < 0.015, Total Protein 7.3, Albumin 3.1 L, Globulin 4.2, Albumin/Globulin Ratio 0.7 L 09/04/20 08:37: Lactic Acid 1.6 09/04/20 08:37: B-Natriuretic Peptide Pending 09/04/20 09:20: Urine Color Yellow, Urine Clarity Sl. Cloudy, Urine pH 6.0, Ur Specific Bristol 1.020, Urine Protein Negative, Urine Glucose (UA) Normal, Urine Ketones Negative, Urine Occult Blood 150 H, Urine Nitrite Positive H, Urine Bilirubin Negative, Urine Urobilinogen Normal, Ur Leukocyte Esterase 500 H, Urine RBC 10-25 SEEN, Urine WBC 25-50 SEEN, Ur Squamous Epith Cells 0 SEEN, Urine Bacteria 0 SEEN, Urine Mucus 0 SEEN 09/04/20 13:05: POC Glucose 138 H Current Medications Acetaminophen (Acetaminophen 325 Mg Tablet) 650 mg PO Q4H PRN PRN Reason: PAIN/FEVER Apixaban (Apixaban 5 Mg Tablet) 5 mg PO BID ON LICENSE OF [facility] Atorvastatin Calcium (Atorvastatin Calcium 20 Mg Tablet) 20 mg PO QHS ON LICENSE OF [facility] Carvedilol (Carvedilol 12.5 Mg Tablet) 12.5 mg PO BID ON LICENSE OF [facility] Divalproex Sodium (Divalproex Sodium 125 Mg Sprinkle) 125 mg PO BID ON LICENSE OF [facility] Dorzolamide/Timolol (Dorzolamide Hcl/Timolol 10 Ml Bottle) 1 drop EACH EYE DAILY ON LICENSE OF [facility] Finasteride (Finasteride 5 Mg Tablet) 5 mg PO DAILY ON LICENSE OF [facility] Gabapentin (Gabapentin 100 Mg Capsule) 100 mg PO 0800 ON LICENSE OF [facility] Gabapentin (Gabapentin 400 Mg Capsule) 400 mg PO 0800 ON LICENSE OF [facility] Sodium Chloride () 250 mls @ 15 mls/hr IV .[id number] PRN PRN Reason: Saline Flush Sodium Chloride () 250 mls @ 15 mls/hr IV .[id number] PRN PRN Reason: Additional IVPB Infusion Sodium Chloride () 1,000 mls @ 100 mls/hr IV .Q10H ON LICENSE OF [facility] Ceftriaxone Sodium (Rocephin) 1 gm in 50 mls @ 100 mls/hr IV Q24 ON LICENSE OF [facility] Insulin Glargine (Insulin Glargine 100 Units/Ml Pen) 24 units SC BID ON LICENSE OF [facility] Insulin Human Lispro (Insulin Lispro 100 Unit/Ml Insuln.Pen) 8 unit SC TIDCM ON LICENSE OF [facility] Latanoprost (Latanoprost 0.005% 1 Bottle) 1 drop EACH EYE QHS ON LICENSE OF [facility] Levothyroxine Sodium (Levothyroxine 75 Mcg Tablet) 75 mcg PO DAILY@0600 ON LICENSE OF [facility] Lorazepam (Lorazepam 0.5 Mg Tablet) 0.25 mg PO BID PRN PRN Reason: ANXIETY Ondansetron HCl (Ondansetron 4 Mg/2 Ml Vial) 4 mg IV Q8H PRN PRN PRN Reason: NAUSEA/VOMITING Sertraline HCl (Sertraline 100 Mg Tablet) 150 mg PO DAILY ON LICENSE OF [facility] Sodium Chloride (0.9% Saline Lock 10 Ml Syringe) 10 - 40 ml IV UD PRN PRN Reason: SALINE FLUSH Tamsulosin HCl (Tamsulosin Hcl 0.4 Mg Capsule) 0.4 mg PO DAILY@0830 ON LICENSE OF [facility] Assessment/Plan All Active Problems (Last Reviewed 09/20/19 @ 16:06 by Jeimy Parker) ICH (intracerebral hemorrhage) (Resolved) Acute kidney injury (Acute) Urinary tract infection (Acute) Sepsis (Acute) 1. SIRS-leukocytosis, tachycardia and tachypnea. Lactic acid within normal limits. Suspect #2 contributing. 2. Acute on chronic diastolic CHF-chest x-ray with pulmonary vascular congestion. BNP pending. Patient not documented to be hypoxic however on 2 L supplemental oxygen. Appears tachypneic. Stress echo from 2018 demonstrated an EF of 65%. IV Lasix. Strict I&O. Daily weight. Repeat echocardiogram. 3. Recent UTI-treated with Bactrim x3 days. Urine culture at that time grew 25-50,000 colony count Enterococcus. Repeat culture pending. Continue IV Rocephin empirically however suspect colonization. 4. Acute kidney injury on chronic kidney disease stage II-plan for diuresis as noted above. Trend BMP. 5. Type 2 diabetes [id number]-Ebqck with sliding scale insulin. Continue home scheduled Humalog and long-acting regimen. 6. Hypertension-stable, continue carvedilol. 7. Hyperlipidemia-continue statin. 8. ADELIA-continue CPAP regimen. 9. BPH-continue Proscar, Flomax. 10. History of hemorrhagic CVA with residual right-sided hemiplegia and chronic right facial [id number]-pyodc, resides at assisted living. On statin, Eliquis. 11. 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 History of DVT- on Eliquis. DVT prophylaxis- Eliquis This patient was seen by VAMSI Dewitt under the supervision of Dr. Eller.
[2020-09-04 13:41] LABS: BNP,B-Type NATRIURETIC PEPTIDE 99.2 pg/mL (0-100)
[2020-09-04] MEDS: 0.9% Saline Lock 10 ML Syringe IV (14:16)
[2020-09-04] MEDS: Furosemide 20 MG/2 ML VIAL IV (14:16)
--- NOTE | 2020-09-04 14:28 | CASEMGMT ---
JAKUB called [facility] and spoke with GREGORIO Almonte. She said there are no problems with patient returning when he is ready. He is a polo lift there already. They asked if a COVID test could be done. JAKUB told them this will be ordered. JAKUB spoke with patient's daughter, Arely and she confirmed the plan is for patient to return to [facility] at d/c. She said transportation will need to be arranged. JAKUB told her that is no problem. Plan: d/c back to [facility] when ready. Transport will need to be set up with [facility]. Green sheet on chart if patient is ready over the weekend. Bev MEDELLIN MSW
[2020-09-04 16:55] LABS: Bedside Glucose 162 mg/dL (70-110)
[2020-09-04] MEDS: Insulin Lispro 100 UNIT/ML INSULN.PEN SC ×2 (17:31→22:20)
[2020-09-04 22:10] LABS: Bedside Glucose 168 mg/dL (70-110)
[2020-09-04] MEDS: Divalproex Sodium 125 MG SPRINKLE PO (22:13)
[2020-09-04] MEDS: Latanoprost 0.005% 1 Bottle 1 DRP EACH EYE (22:13)
[2020-09-04] MEDS: APIXABAN 5 MG TABLET PO (22:13)
[2020-09-04] MEDS: Atorvastatin Calcium 20 MG Tablet PO (22:13)
[2020-09-04] MEDS: Acetaminophen 325 MG Tablet 650 MG PO (23:22)
[2020-09-04] MEDS: 0.9% Normal Saline 1,000 ML 150 ML IV (23:59)
[2020-09-05] VITALS (15 sets, daily range): BP systolic 91–133; BP diastolic 49–72; PULSE 71–98; RESP 19–32; TEMP 37.1–38.6; O2SAT 93–97
[2020-09-05] MEDS: 0.9% Normal Saline 1,000 ML 150 ML IV (06:40)
[2020-09-05] MEDS: Levothyroxine 75 MCG Tablet PO (06:46)
[2020-09-05 07:05] LABS: Bedside Glucose 147 mg/dL (70-110)
[2020-09-05 07:29] LABS: Absolute Neutrophil Count 8.2 X10^3/uL (2.0-7.7); Basophil# 0.03 X10^3/uL; Basophil% 0.3 % (0-1); Lymphocyte % 11.1 % (19-41); Mean Corp Hgb Conc 30.2 g/dL (32-36); Mean Corpuscular Hgb 27.8 pg (27.0-32.0); Mean Corpuscular Volume 92.1 fL (80-94); Mean Platelet Vol. 9.3 fl (6.2-12.0); Monocyte# 0.53 X10^3/uL; Monocyte% 5.4 % (0-10); NRBC Flagged by Analyzer 0 % (0-5); Neutrophil # 8.15 X10^3/uL (2.7-7.7); Neutrophil % 82.5 % (47-70); Platelet Count 182 K/mm3 (150-450); RBC Distribution Width CV 14.6 % (11.6-14.6); RBC Distribution Width SD 49.7 fl (35.1-43.9); Red Blood Count 4.67 M/mm3 (4.6-6.2); White Blood Count 9.9 K/mm3 (4.4-11.0)
[2020-09-05 07:39] LABS: Anion Gap 5 (5-15); BUN 34 mg/dL (7-18); BUN/Creat Ratio 21.1 RATIO (10-20); Calcium,Total 8.5 mg/dL (8.5-10.1); Chloride 110 mmol/L (98-107); Creatinine, Serum 1.61 mg/dL (0.70-1.30); EST Glomerular Filtration Rate 44 mL/min (>60); Est Glom Filt Rate - Afr Amer 53 mL/min (>60); Estimated Creatinine Clearance 39.62 ml/min; Glucose 148 mg/dL (74-106); Potassium 3.8 mmol/L (3.5-5.1); Sodium Level 141 mmol/L (136-145)
[2020-09-05] MEDS: Ceftriaxone 1 GM/50 ML BAG IV (09:13)
[2020-09-05] MEDS: Tamsulosin HCl 0.4 MG Capsule PO (09:14)
[2020-09-05] MEDS: Sertraline 100 MG Tablet 150 MG PO (09:15)
[2020-09-05] MEDS: Finasteride 5 MG Tablet PO (09:15)
[2020-09-05] MEDS: Dorzolamide HCL/Timolol 10 ml Bottle 1 DRP EACH EYE (09:15)
[2020-09-05] MEDS: APIXABAN 5 MG TABLET PO ×2 (09:16→21:25)
[2020-09-05] MEDS: Divalproex Sodium 125 MG SPRINKLE PO ×2 (09:16→21:26)
[2020-09-05 11:35] LABS: Bedside Glucose 165 mg/dL (70-110)
--- NOTE | 2020-09-05 11:37 | PN_ITS ---
Patient Problems: Active and Suspected Problems (Last Reviewed 09/20/19 @ 16:06 by Jeimy Parker) Acute kidney injury (Acute) Urinary tract infection (Acute) Sepsis (Acute) Subjective: Patient seen and examined. Remains confused. Follows commands however speech incomprehensible. - Physical Exam Vitals/I&O's: Vital Signs Temp Pulse Resp BP Pulse Ox 98.7 F 89 23 H 112/55 L 97 09/05/20 08:00 09/05/20 08:00 09/05/20 08:00 09/05/20 08:00 09/05/20 08:00 Oxygen Flow Rate (L/min) 2 Oxygen Delivery Method Nasal Cannula Weight: 245 lb 5.992 oz Body Mass Index (BMI) 34.0 Finger Stick Blood Glucose 125 Intake and Output for Last 24 Hours 09/03/20 09/04/20 09/05/20 23:59 23:59 23:59 Intake Total 1170 / 1170 1475 / 1475 Balance 1170 / 1170 1475 / 1475 General: Alert, Cooperative, No apparent distress HEENT: Atraumatic, PERRLA, EOMI, Normocephalic Neck: Supple, No JVD, Negative Carotid Bruits Lungs: Clear to auscultation, Diminished Cardiovascular: Regular rate, No murmurs Abdomen: Bowel Sounds Present, Soft, Non Tender, Non-Distended, Obese Extremities: No clubbing, No cyanosis, Edema - Right lower extremity +2 pitting edema Skin: No rashes, No breakdown Musculoskeletal: No Tenderness to Palpation of Joints or Extremities Neurological: Cranial nerves II-XII grossly intact, - - Right-sided hemiparesis and right facial droop from prior CVA Psych/Mental Status: Flat Affect Microbiology Past 72 Hours 09/04/20 09:20 Urine Catheter - Catheter Urine Culture - Preliminary GNR Poss Pseudomonas sp 09/04/20 08:30 Blood Culture (Wb) - Right Forearm Blood Culture - Preliminary 09/04/20 08:37 Blood Culture (Wb) - Anticubital Right Blood Culture - Preliminary 09/04/20 14:52 Mucosa - Nose SARS-CoV-2 Antigen (Rapid) - Final Laboratory Results 09/04/20 08:37: B-Natriuretic Peptide 99.2 09/04/20 13:05: POC Glucose 138 H 09/04/20 16:46: POC Glucose 162 H 09/04/20 22:02: POC Glucose 168 H 09/05/20 06:47: Sodium 141, Potassium 3.8, Chloride 110 H, Carbon Dioxide 26.0, Anion Gap 5, BUN 34 H, Creatinine 1.61 H, Estim Creat Clear Calc 39.62, Est GFR (MDRD) Af Amer 53 L, Est GFR (MDRD) Non-Af 44 L, BUN/Creatinine Ratio 21.1 H, Glucose 148 H, Calcium 8.5 09/05/20 06:47: WBC 9.9, RBC 4.67, Hgb 13.0, Hct 43.0, MCV 92.1, MCH 27.8, MCHC 30.2 L D, RDW Std Deviation 49.7 H, RDW Coeff of Claude 14.6, Plt Count 182, MPV 9.3, Immature Gran % (Auto) 0.700, Neut % (Auto) 82.5 H, Lymph % (Auto) 11.1 L, Emmons % (Auto) 5.4, Eos % (Auto) 0.0, Baso % (Auto) 0.3, Absolute Neuts (auto) 8.2 H, Absolute Lymphs (auto) 1.10, Nucleated RBC % 0 09/05/20 06:50: POC Glucose 147 H 09/05/20 11:31: POC Glucose 165 H Current Medications Acetaminophen (Acetaminophen 325 Mg Tablet) 650 mg PO Q4H PRN PRN Reason: PAIN/FEVER Last Admin: 09/04/20 23:22 Dose: 650 mg Documented by: Apixaban (Apixaban 5 Mg Tablet) 5 mg PO BID [facility] Last Admin: 09/05/20 09:16 Dose: 5 mg Documented by: Atorvastatin Calcium (Atorvastatin Calcium 20 Mg Tablet) 20 mg PO QHS [facility] Last Admin: 09/04/20 22:13 Dose: 20 mg Documented by: Carvedilol (Carvedilol 12.5 Mg Tablet) 12.5 mg PO BID [facility] Last Admin: 09/05/20 09:14 Dose: Not Given Documented by: Divalproex Sodium (Divalproex Sodium 125 Mg Sprinkle) 125 mg PO BID [facility] Last Admin: 09/05/20 09:16 Dose: 125 mg Documented by: Dorzolamide/Timolol (Dorzolamide Hcl/Timolol 10 Ml Bottle) 1 drop EACH EYE DAILY [facility] Last Admin: 09/05/20 09:15 Dose: 1 drop Documented by: Finasteride (Finasteride 5 Mg Tablet) 5 mg PO DAILY [facility] Last Admin: 09/05/20 09:15 Dose: 5 mg Documented by: Gabapentin (Gabapentin 100 Mg Capsule) 100 mg PO 0800 [facility] Last Admin: 09/05/20 08:56 Dose: Not Given Documented by: Gabapentin (Gabapentin 400 Mg Capsule) 400 mg PO 0800 [facility] Last Admin: 09/05/20 08:56 Dose: Not Given Documented by: Sodium Chloride () 250 mls @ 15 mls/hr IV .[id number] PRN PRN Reason: Saline Flush Sodium Chloride () 250 mls @ 15 mls/hr IV .[id number] PRN PRN Reason: Additional IVPB Infusion Ceftriaxone Sodium (Rocephin) 1 gm in 50 mls @ 100 mls/hr IV Q24 [facility] Last Infusion: 09/05/20 10:40 Dose: Infused Documented by: Insulin Glargine (Insulin Glargine 100 Units/Ml Pen) 24 units SC BID [facility] Last Admin: 09/04/20 22:19 Dose: 24 units Documented by: Insulin Human Lispro (Insulin Lispro 100 Unit/Ml Insuln.Pen) 0 unit SC [facility]; Protocol Last Admin: 09/05/20 06:50 Dose: Not Given Documented by: Latanoprost (Latanoprost 0.005% 1 Bottle) 1 drop EACH EYE QHS [facility] Last Admin: 09/04/20 22:13 Dose: 1 drop Documented by: Levothyroxine Sodium (Levothyroxine 75 Mcg Tablet) 75 mcg PO DAILY@0600 [facility] Last Admin: 09/05/20 06:46 Dose: 75 mcg Documented by: Lorazepam (Lorazepam 0.5 Mg Tablet) 0.25 mg PO BID PRN PRN Reason: ANXIETY Ondansetron HCl (Ondansetron 4 Mg/2 Ml Vial) 4 mg IV Q8H PRN PRN PRN Reason: NAUSEA/VOMITING Sertraline HCl (Sertraline 100 Mg Tablet) 150 mg PO DAILY [facility] Last Admin: 09/05/20 09:15 Dose: 150 mg Documented by: Sodium Chloride (0.9% Saline Lock 10 Ml Syringe) 10 - 40 ml IV UD PRN PRN Reason: SALINE FLUSH Last Admin: 09/04/20 14:16 Dose: 10 ml Documented by: Tamsulosin HCl (Tamsulosin Hcl 0.4 Mg Capsule) 0.4 mg PO DAILY@0830 [facility] Last Admin: 09/05/20 09:14 Dose: 0.4 mg Documented by: Medical Necessity - Tobacco Use Smoking Status: Never smoker Tobacco Use: Non-smoker Assessment/Plan All Active Problems (Last Reviewed 09/20/19 @ 16:06 by Jeimy Parker) ICH (intracerebral hemorrhage) (Resolved) Acute kidney injury (Acute) Urinary tract infection (Acute) Sepsis (Acute) 1. Sepsis secondary to UTI with associated GNR bacteremia-blood cultures preliminary growing GNR. Urine culture growing possible Pseudomonas. Continue IV Rocephin pending final cultures. 2. Acute on chronic diastolic CHF-chest x-ray with pulmonary vascular congestion. Patient not documented to be hypoxic however on 2 L supplemental oxygen. Stress echo from 2018 demonstrated an EF of 65%. Continue low-dose IV Lasix with hold parameters. Strict I&O. Daily weight. Repeat echocardiogram ordered. 3. Acute kidney injury on chronic kidney disease stage II-improved, trend BMP. 4. Metabolic encephalopathy-secondary to #1/#3. Treat underlying processes as noted above. 5. Type 2 diabetes wlabhghv-Qbix-Lbpwn with sliding scale insulin. Continue home scheduled Humalog and long-acting regimen. 6. Hypertension-stable, continue carvedilol. 7. Hyperlipidemia-continue statin. 8. ADELIA-continue CPAP regimen. 9. BPH-continue Proscar, Flomax. 10. History of hemorrhagic CVA with residual right-sided hemiplegia and chronic right facial gumqj-qvahgonqge-ogjzy, resides at assisted living. On statin, Eliquis. 11. 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 History of DVT- on Eliquis. DVT prophylaxis- Eliquis This patient was seen by VAMSI Dewitt under the supervision of Dr. Eller.
--- NOTE | 2020-09-05 11:42 | ECHOCS_ITS ---
Reason For Study: CHF Procedure This was a 2D Doppler, Color Flow transthoracic echocardiogram. The study was technically difficult. Contrast injection was performed. Exam performed portable in patient room. Left Ventricle Normal LV size. The estimated ejection fraction is 55 %. No evidence for diastolic dysfunction. No regional wall motion abnormalities noted. Right Ventricle Normal RV size. Normal systolic function. Atria Normal left atrium. Normal right atrium. No doppler evidence for ASD. Mitral Valve There is no mitral valve stenosis. No mitral valve insufficiency. Tricuspid Valve There is no tricuspid stenosis. Unable to estimate RV systolic pressure due to inadequate jet, pulmonary artery pressure probably normal. Aortic Valve Trisinus/trileaflet aortic valve. Aortic sclerosis, no stenosis. There is no aortic stenosis. No aortic valve insufficiency. Pulmonic Valve There is no pulmonic valvular stenosis. No pulmonic valve insufficiency. Great Vessels Normal aortic root. Pericardium/Pleural No pericardial effusion. Medication Diluted definity 4ml given slow IV push to enhance endocardial definition. MMode/2D Measurements & Calculations LVIDd: 4.4 cm IVSd: 1.1 cm LA dimension: 3.5 cm LVIDs: 3.2 cm LVPWd: 1.0 cm FS: 28.2 % Time Measurements MV dec time: 0.22 sec Doppler Measurements & Calculations MV E max rafael: 97.7 cm/sec Lat Peak E' Rafael: 10.8 cm/sec Med Peak E' Rafael: 15.6 cm/sec MV A max rafael: 70.4 cm/sec E/E' lat: 9.1 E/E' med: 6.3 MV E/A: 1.4 MV V2 max: 104.0 cm/sec MV P1/2t max rafael: 105.0 cm/sec Ao V2 max: 117.1 cm/sec MV max P.3 mmHg MV P1/2t: 101.4 msec Ao max P.5 mmHg MV V2 mean: 55.5 cm/sec MV mean P.5 mmHg MV dec slope: 303.1 cm/sec2 MV V2 VTI: 30.4 cm MVA(P1/2t): 2.2 cm2 LV V1 max: 94.2 cm/sec LV V1 max P.5 mmHg Interpretation Summary The estimated ejection fraction is 55 %. No evidence for diastolic dysfunction. The study was technically difficult. Contrast injection was performed. Ordering Physician: Magui Grullon Referring Physician: Pearl Stanton M.D. Performed By: Jeff Lozada RCS
[2020-09-05] MEDS: Insulin Lispro 100 UNIT/ML INSULN.PEN SC ×3 (13:40→21:39)
[2020-09-05] MEDS: Furosemide 20 MG/2 ML VIAL IV (17:19)
[2020-09-05] MEDS: 0.9% Saline Lock 10 ML Syringe IV (17:20)
[2020-09-05 17:31] LABS: Bedside Glucose 177 mg/dL (70-110)
[2020-09-05] MEDS: Atorvastatin Calcium 20 MG Tablet PO (21:25)
[2020-09-05] MEDS: Carvedilol 12.5 MG Tablet PO (21:25)
[2020-09-05] MEDS: Latanoprost 0.005% 1 Bottle 1 DRP EACH EYE (21:26)
[2020-09-05 21:55] LABS: Bedside Glucose 150 mg/dL (70-110)
[2020-09-06] VITALS (12 sets, daily range): BP systolic 108–129; BP diastolic 60–75; PULSE 67–143; RESP 18–22; TEMP 36.3–36.9; O2SAT 94–96
[2020-09-06 06:12] LABS: Hematocrit 40.7 % (40-54); Hemoglobin 12.5 g/dL (13.0-16.5); Mean Corp Hgb Conc 30.7 g/dL (32-36); Mean Corpuscular Hgb 28.1 pg (27.0-32.0); Mean Corpuscular Volume 91.5 fL (80-94); Mean Platelet Vol. 9.6 fl (6.2-12.0); Platelet Count 158 K/mm3 (150-450); RBC Distribution Width CV 14.3 % (11.6-14.6); RBC Distribution Width SD 48.4 fl (35.1-43.9); Red Blood Count 4.45 M/mm3 (4.6-6.2); White Blood Count 9.1 K/mm3 (4.4-11.0)
[2020-09-06] MEDS: Levothyroxine 75 MCG Tablet PO (06:22)
[2020-09-06 06:24] LABS: Anion Gap 4 (5-15); BUN 31 mg/dL (7-18); Calcium,Total 8.3 mg/dL (8.5-10.1); Chloride 106 mmol/L (98-107); Creatinine, Serum 1.15 mg/dL (0.70-1.30); EST Glomerular Filtration Rate 65 mL/min (>60); Est Glom Filt Rate - Afr Amer 79 mL/min (>60); Estimated Creatinine Clearance 55.47 ml/min; Glucose 135 mg/dL (74-106); Potassium 3.6 mmol/L (3.5-5.1); Sodium Level 139 mmol/L (136-145)
[2020-09-06 07:00] LABS: Bedside Glucose 131 mg/dL (70-110)
--- NOTE | 2020-09-06 08:32 | RAD_ITS ---
STUDY: X-RAY CHEST REASON FOR EXAM: Male, 80 years old. HYPOXIA, ALEX TECHNIQUE: Single AP portable view of the chest. COMPARISON: 09/04/2020 FINDINGS: Cardiac monitoring leads are present. Low lung lines are noted with mild hypoventilatory change to clearly at the left lung base in a similar pattern to that seen previously There is no demonstrated pleural abnormality. Normal size heart. Normal mediastinum and familia. Normal visualized pulmonary arteries. There is atherosclerotic tortuosity of the aortic arch and descending thoracic aorta. There are diffuse degenerative changes of the visualized thoracic spine. There is degenerative osteoarthritis of the bilateral shoulders. There is no demonstrated abnormality of the visualized soft tissue structures of the upper abdomen. RAD/Chest 1 View (Portable) IMPRESSION: Unchanged appearance of the chest with low lung volumes and hypoventilatory changes at the left lung base. Electronically Signed: Laurel Vitale MD at 10:04 EST , Service support ,
[2020-09-06] MEDS: Finasteride 5 MG Tablet PO (09:15)
[2020-09-06] MEDS: Sertraline 100 MG Tablet 150 MG PO (09:15)
[2020-09-06] MEDS: Carvedilol 12.5 MG Tablet PO (09:15)
[2020-09-06] MEDS: Gabapentin 400 MG Capsule PO (09:15)
[2020-09-06] MEDS: Divalproex Sodium 125 MG SPRINKLE PO ×2 (09:15→21:20)
[2020-09-06] MEDS: Gabapentin 100 MG Capsule PO (09:15)
[2020-09-06] MEDS: APIXABAN 5 MG TABLET PO ×2 (09:16→21:20)
[2020-09-06] MEDS: Furosemide 20 MG/2 ML VIAL IV (09:16)
[2020-09-06] MEDS: Dorzolamide HCL/Timolol 10 ml Bottle 1 DRP EACH EYE (09:16)
[2020-09-06] MEDS: 0.9% Saline Lock 10 ML Syringe IV (09:17)
[2020-09-06] MEDS: Insulin Lispro 100 UNIT/ML INSULN.PEN SC ×3 (11:38→21:21)
[2020-09-06 11:46] LABS: Bedside Glucose 201 mg/dL (70-110)
--- NOTE | 2020-09-06 12:08 | PN_ITS ---
Patient Problems: Active and Suspected Problems (Last Reviewed 09/20/19 @ 16:06 by Jeimy Parker) Acute kidney injury (Acute) Urinary tract infection (Acute) Sepsis (Acute) Subjective: Patient seen and examined. Appears much improved today. Conversing appropriately. Blood and urine cultures growing Pseudomonas. - Physical Exam Vitals/I&O's: Vital Signs Temp Pulse Resp BP Pulse Ox 98.2 F 73 20 H 108/61 96 09/06/20 09:15 09/06/20 09:15 09/06/20 09:15 09/06/20 09:15 09/06/20 09:15 Oxygen Flow Rate (L/min) 2 Oxygen Delivery Method Nasal Cannula Weight: 250 lb 7.122 oz Body Mass Index (BMI) 34.0 Finger Stick Blood Glucose 125 Intake and Output for Last 24 Hours 09/04/20 09/05/20 09/06/20 23:59 23:59 23:59 Intake Total 1170 / 1170 2295 / 2355 60 / 60 Balance 1170 / 1170 2295 / 2355 60 / 60 General: Alert, Oriented x3, Cooperative HEENT: Atraumatic, PERRLA, EOMI, Normocephalic Neck: Supple, No JVD, Negative Carotid Bruits Lungs: Clear to auscultation, Diminished Cardiovascular: Regular rate, No murmurs Abdomen: Bowel Sounds Present, Soft, Non Tender, Non-Distended, Obese Extremities: No clubbing, No cyanosis, Edema - Right lower extremity Skin: No rashes, No breakdown Musculoskeletal: No Tenderness to Palpation of Joints or Extremities Neurological: Cranial nerves II-XII grossly intact, - - Right-sided hemiparesis and right facial droop from prior CVA Psych/Mental Status: Normal Affect, Appropriate Microbiology Past 72 Hours 09/04/20 08:37 Blood Culture (Wb) - Anticubital Right Blood Culture - Preliminary Pseudomonas aeroginosa 09/04/20 09:20 Urine Catheter - Catheter Urine Culture - Final Pseudomonas aeroginosa 09/04/20 08:30 Blood Culture (Wb) - Right Forearm Blood Culture - Preliminary GNR Poss Pseudomonas sp 09/04/20 14:52 Mucosa - Nose SARS-CoV-2 Antigen (Rapid) - Final Laboratory Results 09/05/20 17:18: POC Glucose 177 H 09/05/20 21:36: POC Glucose 150 H 09/06/20 05:50: WBC 9.1, RBC 4.45 L, Hgb 12.5 L, Hct 40.7, MCV 91.5, MCH 28.1, MCHC 30.7 L, RDW Std Deviation 48.4 H, RDW Coeff of Claude 14.3, Plt Count 158, MPV 9.6 09/06/20 05:50: Sodium 139, Potassium 3.6, Chloride 106, Carbon Dioxide 29.0, Anion Gap 4 L, BUN 31 H, Creatinine 1.15, Estim Creat Clear Calc 55.47, Est GFR (MDRD) Af Amer 79, Est GFR (MDRD) Non-Af 65, BUN/Creatinine Ratio 27.0 H, Glucose 135 H, Calcium 8.3 L 09/06/20 06:50: POC Glucose 131 H 09/06/20 11:37: POC Glucose 201 H Current Medications Acetaminophen (Acetaminophen 325 Mg Tablet) 650 mg PO Q4H PRN PRN Reason: PAIN/FEVER Last Admin: 09/04/20 23:22 Dose: 650 mg Documented by: Apixaban (Apixaban 5 Mg Tablet) 5 mg PO BID [facility] Last Admin: 09/06/20 09:16 Dose: 5 mg Documented by: Atorvastatin Calcium (Atorvastatin Calcium 20 Mg Tablet) 20 mg PO QHS [facility] Last Admin: 09/05/20 21:25 Dose: 20 mg Documented by: Carvedilol (Carvedilol 12.5 Mg Tablet) 12.5 mg PO BID [facility] Last Admin: 09/06/20 09:15 Dose: 12.5 mg Documented by: Divalproex Sodium (Divalproex Sodium 125 Mg Sprinkle) 125 mg PO BID [facility] Last Admin: 09/06/20 09:15 Dose: 125 mg Documented by: Dorzolamide/Timolol (Dorzolamide Hcl/Timolol 10 Ml Bottle) 1 drop EACH EYE DAILY [facility] Last Admin: 09/06/20 09:16 Dose: 1 drop Documented by: Finasteride (Finasteride 5 Mg Tablet) 5 mg PO DAILY [facility] Last Admin: 09/06/20 09:15 Dose: 5 mg Documented by: Furosemide (Furosemide 20 Mg/2 Ml Vial) 20 mg IV BID@1000,1800 [facility] Last Admin: 09/06/20 09:16 Dose: 20 mg Documented by: Gabapentin (Gabapentin 100 Mg Capsule) 100 mg PO 0800 [facility] Last Admin: 09/06/20 09:15 Dose: 100 mg Documented by: Gabapentin (Gabapentin 400 Mg Capsule) 400 mg PO 0800 [facility] Last Admin: 09/06/20 09:15 Dose: 400 mg Documented by: Sodium Chloride () 250 mls @ 15 mls/hr IV .[id number] PRN PRN Reason: Saline Flush Sodium Chloride () 250 mls @ 15 mls/hr IV .[id number] PRN PRN Reason: Additional IVPB Infusion Meropenem 1 gm/ Sodium (Chloride) 120 mls @ 33 mls/hr IV Q12 [facility] Last Admin: 09/06/20 09:16 Dose: 33 mls/hr Documented by: Insulin Glargine (Insulin Glargine 100 Units/Ml Pen) 24 units SC BID [facility] Last Admin: 09/06/20 09:16 Dose: 24 units Documented by: Insulin Human Lispro (Insulin Lispro 100 Unit/Ml Insuln.Pen) 0 unit SC [facility]; Protocol Last Admin: 09/06/20 11:38 Dose: 1 unit Documented by: Latanoprost (Latanoprost 0.005% 1 Bottle) 1 drop EACH EYE QHS [facility] Last Admin: 09/05/20 21:26 Dose: 1 drop Documented by: Levothyroxine Sodium (Levothyroxine 75 Mcg Tablet) 75 mcg PO DAILY@0600 [facility] Last Admin: 09/06/20 06:22 Dose: 75 mcg Documented by: Lorazepam (Lorazepam 0.5 Mg Tablet) 0.25 mg PO BID PRN PRN Reason: ANXIETY Ondansetron HCl (Ondansetron 4 Mg/2 Ml Vial) 4 mg IV Q8H PRN PRN PRN Reason: NAUSEA/VOMITING Sertraline HCl (Sertraline 100 Mg Tablet) 150 mg PO DAILY [facility] Last Admin: 09/06/20 09:15 Dose: 150 mg Documented by: Sodium Chloride (0.9% Saline Lock 10 Ml Syringe) 10 - 40 ml IV UD PRN PRN Reason: SALINE FLUSH Last Admin: 09/06/20 09:17 Dose: 10 ml Documented by: Tamsulosin HCl (Tamsulosin Hcl 0.4 Mg Capsule) 0.4 mg PO DAILY@0830 [facility] Last Admin: 09/06/20 09:17 Dose: Not Given Documented by: Medical Necessity - Tobacco Use Smoking Status: Never smoker Tobacco Use: Non-smoker Assessment/Plan All Active Problems (Last Reviewed 09/20/19 @ 16:06 by Jeimy Parker) ICH (intracerebral hemorrhage) (Resolved) Acute kidney injury (Acute) Urinary tract infection (Acute) Sepsis (Acute) 1. Sepsis secondary to Pseudomonas UTI with associated Pseudomonas bacteremia- blood and urine cultures growing Pseudomonas. Continue IV meropenem. 2. Acute on chronic diastolic CHF-chest x-ray with pulmonary vascular congestion. Patient not documented to be hypoxic however on 2 L supplemental oxygen. Stress echo from 2018 demonstrated an EF of 65%. Strict I&O. Daily gene ght. Echocardiogram demonstrates an EF of 55%, no evidence of diastolic dysfunction. Repeat chest x-ray without congestion. DC further IV Lasix. Continue home Lasix regimen. 3. Acute kidney injury on chronic kidney disease stage II-acute kidney injury resolved with diuresis. 4. Metabolic encephalopathy-secondary to #1/#3. Treat underlying processes as noted above. Significantly improved. 5. Type 2 diabetes fbjdoqll-Zfto-Lsdck with sliding scale insulin. Continue home scheduled Humalog and long-acting regimen. 6. Hypertension-stable, continue carvedilol. 7. Hyperlipidemia-continue statin. 8. ADELIA-continue CPAP regimen. 9. BPH-continue Proscar, Flomax. 10. History of hemorrhagic CVA with residual right-sided hemiplegia and chronic right facial odwos-bujxscxdis-vbcyo, resides at assisted living. On statin, Eliquis. 11. 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 History of DVT- on Eliquis. DVT prophylaxis- Eliquis This patient was seen by Magui Grullon NP-Eduin under the supervision of Dr. Eller.
--- NOTE | 2020-09-06 13:52 | EKG12_ITS ---
Test Reason : TACHY Blood Pressure : / mmHG Vent. Rate : 089 BPM Atrial Rate : 357 BPM P-R Int : 000 ms QRS Dur : 136 ms QT Int : 402 ms P-R-T Axes : 251 034 -06 degrees QTc Int : 489 ms Atrial flutter with variable A-V block Non-specific intra-ventricular conduction block Abnormal ECG When compared with ECG of 06-SEP-2020 14:09, MANUAL COMPARISON REQUIRED, DATA IS UNCONFIRMED Confirmed by WILL CORTEZ, ALDO ([id number]), music manager RALEIGH MOREIRA ([id number]) on 09/08/2020 10:57:47 AM Referred By: DR LEDESMA Confirmed By:ALDO SOLIS MD
[2020-09-06 16:56] LABS: Bedside Glucose 186 mg/dL (70-110)
[2020-09-06] MEDS: Metoprolol Tartrate 25 MG Tablet PO (21:18)
[2020-09-06] MEDS: Atorvastatin Calcium 20 MG Tablet PO (21:18)
[2020-09-06] MEDS: Latanoprost 0.005% 1 Bottle 1 DRP EACH EYE (21:19)
[2020-09-06 23:06] LABS: Bedside Glucose 186 mg/dL (70-110)
[2020-09-07] VITALS (9 sets, daily range): BP systolic 95–133; BP diastolic 67–85; PULSE 91–143; RESP 19–20; TEMP 36.2–36.7; O2SAT 87–99
--- NOTE | 2020-09-07 04:26 | EKG12_ITS ---
Test Reason : ARRYTH Blood Pressure : / mmHG Vent. Rate : 095 BPM Atrial Rate : 089 BPM P-R Int : 000 ms QRS Dur : 136 ms QT Int : 388 ms P-R-T Axes : 000 042 003 degrees QTc Int : 487 ms Atrial fibrillation Right bundle branch block Abnormal ECG When compared with ECG of 04-SEP-2020 08:45, MANUAL COMPARISON REQUIRED, DATA IS UNCONFIRMED Confirmed by WILL CORTEZ, ALDO ([id number]), material expeditor RALEIGH MOREIRA ([id number]) on 09/08/2020 10:58:40 AM Referred By: YAJAIRA Confirmed By:ALDO SOLIS MD
[2020-09-07] MEDS: Levothyroxine 75 MCG Tablet PO (05:18)
[2020-09-07 06:28] LABS: Hematocrit 43.9 % (40-54); Mean Corp Hgb Conc 31.9 g/dL (32-36); Mean Corpuscular Hgb 28.6 pg (27.0-32.0); Mean Corpuscular Volume 89.8 fL (80-94); Mean Platelet Vol. 10.5 fl (6.2-12.0); Platelet Count 176 K/mm3 (150-450); RBC Distribution Width SD 46.1 fl (35.1-43.9); Red Blood Count 4.89 M/mm3 (4.6-6.2); White Blood Count 9.3 K/mm3 (4.4-11.0)
[2020-09-07] MEDS: Insulin Lispro 100 UNIT/ML INSULN.PEN SC ×2 (06:44→11:01)
[2020-09-07 06:56] LABS: Anion Gap 6 (5-15); BUN 26 mg/dL (7-18); BUN/Creat Ratio 25.2 RATIO (10-20); Calcium,Total 8.3 mg/dL (8.5-10.1); Chloride 107 mmol/L (98-107); Creatinine, Serum 1.03 mg/dL (0.70-1.30); EST Glomerular Filtration Rate 74 mL/min (>60); Est Glom Filt Rate - Afr Amer 90 mL/min (>60); Estimated Creatinine Clearance 61.94 ml/min; Glucose 151 mg/dL (74-106); Potassium 3.6 mmol/L (3.5-5.1); Sodium Level 142 mmol/L (136-145)
[2020-09-07 07:00] LABS: Bedside Glucose 165 mg/dL (70-110)
[2020-09-07] MEDS: Dorzolamide HCL/Timolol 10 ml Bottle 1 DRP EACH EYE (08:46)
[2020-09-07] MEDS: Finasteride 5 MG Tablet PO (08:51)
[2020-09-07] MEDS: Sertraline 100 MG Tablet 150 MG PO (08:51)
[2020-09-07] MEDS: Metoprolol Tartrate 25 MG Tablet PO ×2 (08:51→09:26)
[2020-09-07] MEDS: Furosemide 40 MG Tablet PO (08:52)
[2020-09-07] MEDS: Divalproex Sodium 125 MG SPRINKLE PO (08:52)
[2020-09-07] MEDS: APIXABAN 5 MG TABLET PO (08:52)
[2020-09-07] MEDS: 0.9% Saline Lock 10 ML Syringe IV (09:26)
[2020-09-07] MEDS: Digoxin 250 MCG/ML Ampul 500 MCG IV (09:26)
--- NOTE | 2020-09-07 10:06 | CASEMGMT ---
JAKUB faxed updates to [facility]. JAKUB also wrote on fax face sheet that if physician is able to get patient's rate controlled he could possibly return later today. Bev MEDELLIN MSW
[2020-09-07 11:10] LABS: Bedside Glucose 204 mg/dL (70-110)
--- NOTE | 2020-09-07 11:33 | CASEMGMT ---
Addendum entered by Diane Maciel 09/07/20 14:23: [employer] aware that pt to be leaving here with [facility] shortly and she states hazardous materials driver is en route to assisted living with equipment. Padmini PERKINS CM Original Note: Per Mar PERKINS, pt qualifies for 2L continuous home oxygen at this time. Call to pt's daughter, Arely, and verbal list of local in-network DME companies provided at this time. Daughter states no preference on DME company and then states they have used [employer] in the past. Daughter states would like [employer] at this time. Referral faxed to [facility] at this time and call to Morenita at [facility] to notify of referral and that pt is from [facility] and will return there via squad and cot, voices understanding. Jose CALL update on all, voices understanding. Padmini PERKINS CM
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
--- NOTE | 2020-09-07 12:20 | PHA.DC.MR ---
Pharmacy Service has performed discharge medication reconciliation for this patient. The patient's discharge medication list was reviewed for discrepancies and discrepancies were resolved. Home Medications Acetaminophen 2 tab PO Q4H PRN 09/04/20 Acetaminophen [Tylenol Suppository] 650 mg RECTAL Q4H PRN PRN 09/04/20 Apixaban [Eliquis] 5 mg PO BID 09/04/20 Atorvastatin Calcium [Lipitor] 20 mg PO QHS 09/04/20 Betamethasone Dipropionate 1 applicatio TP MOWEFR 09/04/20 Bisacodyl 10 mg RC DAILY PRN 09/04/20 Cholecalciferol (Vitamin D3) [Vitamin D3] 125 mcg PO TH 09/04/20 Divalproex Sprinkles [Depakote Sprinkles] 125 mg PO BID 09/04/20 Dorzolamide HCL/Timolol [Cosopt Opth Drops] 1 drp EACH EYE DAILY 09/04/20 Finasteride [Proscar] 5 mg PO DAILY 09/04/20 Gabapentin [Neurontin] 500 mg PO 0800 09/04/20 Guaifenesin [Robitussin] 10 ml PO Q4H PRN PRN 09/04/20 Hydroxyzine HCl 25 mg PO BID PRN 09/04/20 Insulin Glargine,Hum.rec.anlog [Lantus] 24 unit SC BID 09/04/20 Insulin Lispro [Humalog] 8 unit SC TIDCM 09/04/20 Ketoconazole 1 applic TP DAILY 09/04/20 Latanoprost 0.005% [Xalatan Opthalmic] 1 drp EACH EYE QHS 09/04/20 Levothyroxine [Synthroid] 75 mcg PO DAILY 09/04/20 Lorazepam 0.5 tab PO BID PRN 09/04/20 Mag Hydrox/Aluminum Hyd/Simeth [Mi-Acid 400-400-40 mg/10 ml Lq] 30 ml PO DAILY PRN 09/04/20 Melatonin 2 tab PO QHS PRN 09/04/20 Menthol/Lanolin/Calamine/Znox [Calmoseptine Ointment] 1 applic TP TID PRN 09/04/20 Methyl Salicylate/Menthol [Muscle Rub Cream] 1 applic TP TID PRN 09/04/20 Nystatin Powder [Mycostatin Powder] 1 applic TOPICAL DAILY PRN 09/04/20 Ondansetron [Zofran Odt] 4 mg PO Q8H PRN PRN 09/04/20 Polyethylene Glycol 3350 [Miralax] 17 gm PO PRN PRN 09/04/20 Sennosides/Docusate Sodium [Senna-S Tablet] 1 ea PO DAILY PRN 09/04/20 Sertraline HCl [Zoloft] 150 mg PO DAILY 09/04/20 Sitagliptin Phosphate [Januvia] 50 mg PO DAILY 09/04/20 Sodium Phosphate,[place]-Dibasic [Enema Xlivj-Pl-Ljd] 133 ml RC DAILY PRN 09/04/20 Tamsulosin HCl [Flomax] 0.4 mg PO DAILY 09/04/20 Triamcinolone 0.1% Cream [Kenalog] 1 applic TOPICAL BID 09/04/20 Furosemide [Lasix] 40 mg PO DAILY #30 tab 09/07/20 Levofloxacin [Levaquin] 750 mg PO DAILY #8 tab 09/07/20 Metoprolol Tartrate [Lopressor (beta razia)] 50 mg PO BID #60 tab 09/07/20
--- NOTE | 2020-09-07 12:28 | CASEMGMT ---
Patient is ready for discharge back to [place]. JAKUB faxed orders to [place]. JAKUB also arranged with [facility] to have patient picked up at 1400 via cot. JAKUB also wrote on fax face sheet that patient will be picked up at 1400. JAKUB notified RN, patient, and his daughter. Plan: d/c back to [place] [facility]. He had new O2 set up through [employer]. [facility] transported via cot. Bev MEDELLIN MSW
--- NOTE | 2020-09-07 13:31 | NURSING ---
Called report to Suzy PERKINS at [facility]
== END 2020-09-07 14:23 | disposition home or self-care (01) | DRG 871 ==
LOC: ED 10:04 → PCU 10:32
PROVIDERS: Nurse Practitioner Family; Admitting Provider Internal Medicine; Emergency Provider Emergency Medicine; PCP Family Medicine; Visit Provider Internal Medicine
DX: A41.52 Sepsis due to Pseudomonas (principal); I50.33 Acute on chronic diastolic (congestive) heart failure; G93.41 Metabolic encephalopathy; N17.9 Acute kidney failure, unspecified; N39.0 Urinary tract infection, site not specified; I13.0 Hypertensive heart and chronic kidney disease with heart failure and stage 1 through stage 4 chronic kidney disease, or unspecified chronic kidney disease; I69.351 Hemiplegia and hemiparesis following cerebral infarction affecting right dominant side; N18.2 Chronic kidney disease, stage 2 (mild); E11.22 Type 2 diabetes mellitus with diabetic chronic kidney disease; E78.5 Hyperlipidemia, unspecified; G47.33 Obstructive sleep apnea (adult) (pediatric); N40.0 Benign prostatic hyperplasia without lower urinary tract symptoms; I45.10 Unspecified right bundle-branch block; I69.392 Facial weakness following cerebral infarction; Z89.612 Acquired absence of left leg above knee; Z86.718 Personal history of other venous thrombosis and embolism; M19.90 Unspecified osteoarthritis, unspecified site; G25.81 Restless legs syndrome; E66.9 Obesity, unspecified; Z68.34 Body mass index [BMI] 34.0-34.9, adult; Z99.3 Dependence on wheelchair; I48.91 Unspecified atrial fibrillation; Z91.19 Patient's noncompliance with other medical treatment and regimen; R09.02 Hypoxemia
CPT/HCPCS: 36415; 70450; 71045; 80048; 80053; 81001; 82962; 83605; 83880; 84484; 85025; 85027; 85610; 85730; 87040; 87077; 87086; 87088; 87184; 87186; 87426; 92523; 92526; 92610; 93005; 93306; 97110; 97162; 97166; 97530; 97535; 99285; J2185; J7030; Q9957; A4216; C8929; J1940; J2405

== ENCOUNTER → 2020-09-14 05:00 | Outpatient (REF) | payer MEDICARE, SELFPAY ==
[2020-09-04 10:57] VITALS: BMI 34.0
[2020-09-14 09:31] LABS: Hematocrit 43.3 % (40-54); Hemoglobin 13.7 g/dL (13.0-16.5); Mean Corp Hgb Conc 31.6 g/dL (32-36); Mean Corpuscular Hgb 28.5 pg (27.0-32.0); Mean Platelet Vol. 10.5 fl (6.2-12.0); Platelet Count 232 K/mm3 (150-450); RBC Distribution Width SD 45.8 fl (35.1-43.9); Red Blood Count 4.81 M/mm3 (4.6-6.2)
[2020-09-14 10:08] LABS: Valproic Acid (Depakene) Level 8 ug/mL (50-100)
[2020-09-14 10:10] LABS: BNP,B-Type NATRIURETIC PEPTIDE 137.7 pg/mL (0-100)
[2020-09-14 10:12] LABS: Anion Gap 6 (5-15); BUN 22 mg/dL (7-18); BUN/Creat Ratio 19.5 RATIO (10-20); Calcium,Total 8.8 mg/dL (8.5-10.1); Chloride 108 mmol/L (98-107); Creatinine, Serum 1.13 mg/dL (0.70-1.30); EST Glomerular Filtration Rate 66 mL/min (>60); Est Glom Filt Rate - Afr Amer 80 mL/min (>60); Glucose 96 mg/dL (74-106); Potassium 3.3 mmol/L (3.5-5.1); Sodium Level 145 mmol/L (136-145)
== END ==
PROVIDERS: PCP Family Medicine; Referring Provider Family Medicine; Visit Provider Family Medicine
DX: I50.9 Heart failure, unspecified (principal); E11.9 Type 2 diabetes mellitus without complications; R53.83 Other fatigue; Z79.899 Other long term (current) drug therapy
CPT/HCPCS: 36415; 80048; 80164; 83880; 85027

== ENCOUNTER → 2020-09-21 05:00 | Outpatient (REF) | payer MEDICARE, SELFPAY ==
[2020-09-04 10:57] VITALS: BMI 34.0
[2020-09-21 08:45] LABS: Anion Gap 6 (5-15); BUN 21 mg/dL (7-18); BUN/Creat Ratio 17.1 RATIO (10-20); Calcium,Total 8.5 mg/dL (8.5-10.1); Chloride 111 mmol/L (98-107); Creatinine, Serum 1.23 mg/dL (0.70-1.30); EST Glomerular Filtration Rate 60 mL/min (>60); Est Glom Filt Rate - Afr Amer 73 mL/min (>60); Glucose 165 mg/dL (74-106); Potassium 3.3 mmol/L (3.5-5.1); Sodium Level 147 mmol/L (136-145)
== END ==
PROVIDERS: PCP Family Medicine; Referring Provider Family Medicine; Visit Provider Family Medicine
DX: Z79.899 Other long term (current) drug therapy (principal)
CPT/HCPCS: 36415; 80048; 84443

== ENCOUNTER → 2020-09-24 05:00 | Outpatient (REF) | payer MEDICARE, SELFPAY ==
[2020-09-04 10:57] VITALS: BMI 34.0
[2020-09-24 07:42] LABS: Thyroid Stim Hormone (TSH) 9.84 uIU/mL (0.358-3.74)
== END ==
PROVIDERS: PCP Family Medicine; Referring Provider Family Medicine; Visit Provider Family Medicine
DX: E03.9 Hypothyroidism, unspecified (principal)
CPT/HCPCS: 36415; 84443

== ENCOUNTER → 2020-10-07 05:00 | Outpatient (REF) | payer MEDICARE, SELFPAY ==
[2020-09-04 10:57] VITALS: BMI 34.0
[2020-10-07 07:46] LABS: Erythrocyte Sedimentation Rate 23 mm/hr (0-20)
[2020-10-07 07:47] LABS: Absolute Lymphocyte Count 2.71 X10^3/uL (0.83-4.51); Absolute Neutrophil Count 7.9 X10^3/uL (2.0-7.7); Basophil# 0.05 X10^3/uL; Basophil% 0.4 % (0-1); Eosinophil# 0.49 X10^3/uL; Eosinophils% 4.1 % (0-5); Hematocrit 40.8 % (40-54); Lymphocyte # 2.71 X10^3/ul (4.0); Lymphocyte % 22.7 % (19-41); Mean Corp Hgb Conc 31.9 g/dL (32-36); Mean Corpuscular Hgb 28.3 pg (27.0-32.0); Mean Corpuscular Volume 88.9 fL (80-94); Mean Platelet Vol. 10.5 fl (6.2-12.0); Monocyte# 0.69 X10^3/uL; Monocyte% 5.8 % (0-10); NRBC Flagged by Analyzer 0 % (0-5); Neutrophil % 66.3 % (47-70); Platelet Count 189 K/mm3 (150-450); RBC Distribution Width CV 15.1 % (11.6-14.6); Red Blood Count 4.59 M/mm3 (4.6-6.2); White Blood Count 11.9 K/mm3 (4.4-11.0)
== END ==
PROVIDERS: PCP Family Medicine; Referring Provider Family Medicine; Visit Provider Family Medicine
DX: R53.83 Other fatigue (principal)
CPT/HCPCS: 36415; 85025; 85652